=== PATIENT | female | born 1985 ===

== ENCOUNTER → 2020-06-22 10:30 | Outpatient (BNVA) | payer OTHER, SELFPAY | PROVIDERS: PCP Internal Medicine; Referring Provider Internal Medicine; Visit Provider Obstetrics & Gynecology | DX: Z76.89 Persons encountering health services in other specified circumstances (principal) ==

== ENCOUNTER 2021-02-02 17:05 | Emergency (ER) | payer OTHER, SELFPAY ==
[2021-02-02 17:54] VITALS: BP 129/81; PULSE 74; RESP 16; TEMP 36.9; O2SAT 99; BMI 37.5
--- NOTE | 2021-02-02 18:01 | ECG_ITS ---
Test Reason : CHEST PAIN Blood Pressure : / mmHG Vent. Rate : 064 BPM Atrial Rate : 064 BPM P-R Int : 134 ms QRS Dur : 076 ms QT Int : 420 ms P-R-T Axes : 073 015 048 degrees QTc Int : 433 ms Normal sinus rhythm Normal ECG No previous ECGs available Referred By: Generic ED Physician Electronically Signed By:Vitor Hernandez
[2021-02-02 18:27] LABS: MANUAL DIFF FLAG NO
[2021-02-02 18:31] LABS: Basophils Percent Auto 0.6 % (0-2); Eosinophils Absolute Auto 0.1 X10*3/uL (0.0-0.4); Hematocrit 40.5 % (37-47); Imm Gran Abs Auto 0.01 X10*3/uL (0.00-0.03); Imm Gran Pct Auto 0.2 % (0.0-0.4); Lymphocytes Percent Auto 31.9 % (20-40); Mean Corpuscular HGB Conc 32.1 g/dl (31.0-35.0); Mean Corpuscular Hemoglobin 25.9 pg (27.0-33.0); Mean Corpuscular Volume 80.8 fL (80-98); Mean Platelet Volume 9.3 fL (9.4-12.3); Monocytes Absolute Auto 0.3 X10*3/uL (0.1-1.2); Monocytes Percent Auto 5.2 % (2-11); Neutrophils Absolute Auto 3.9 X10*3/uL (2.0-8.3); Neutrophils Percent Auto 61.1 % (45-73); Platelet Count 240 X10*3/uL (160-400); Red Blood Count 5.01 X10*6/uL (4.20-5.50); Red Cell Distribution Width 12.7 % (11.0-16.0); White Blood Count 6.3 X10*3/uL (4.8-10.8)
[2021-02-02 19:00] LABS: Anion Gap 13 (12-20); Blood Urea Nitrogen 14 mg/dL (9-16); Calcium 9.3 mg/dL (8.4-10.2); Carbon Dioxide 27 mmol/L (22-29); Chloride 101 mmol/L (96-108); Estimated Glomerular Filt Rate > 60; Glucose Random 74 mg/dL (60-115); Potassium 4.4 mmol/L (3.3-5.1); Sodium 137 mmol/L (135-145)
[2021-02-02 19:06] LABS: Troponin-I High Sensitivity 4.3 ng/L (<3.5-17.0)
[2021-02-02 19:54] VITALS: BP 145/92; PULSE 70; RESP 15; TEMP 36.7; O2SAT 100
--- NOTE | 2021-02-02 20:08 | ED_ITS ---
HPI - Chest Pain General Chief Complaint: Chest Pain Stated Complaint: chest pain Time Seen by Provider: 02/02/21 20:08 Source: patient Mode of arrival: ambulatory Limitations: no limitations History of Present Illness HPI narrative: Patient with frequent chest pain with anxiety complaining of chest pain started today similar pain in the past happening almost to 3 times a week no shortness of breath no risk factor for coronary artery disease Related Data Home Medications Medication Instructions Recorded Confirmed albuterol sulfate 90 mcg/actuation 2 puff INHALATION Q6H PRN 06/22/20 01/27/21 aerosol inhaler cholecalciferol (vitamin D3) 50 50 mcg PO BEDTIME 06/22/20 01/27/21 mcg (2,000 unit) capsule fluticasone propionate 44 2 puff INHALATION BID 06/22/20 01/27/21 mcg/actuation HFA aerosol inhaler loratadine 10 mg capsule 10 mg PO DAILY 06/22/20 01/27/21 omeprazole 20 mg capsule,delayed 20 mg PO DAILY 06/22/20 01/27/21 release ondansetron HCl 4 mg tablet 4 mg PO Q8H 06/22/20 01/27/21 Previous Rx's Medication Instructions Recorded norgestimate 0.18 mg/0.215 mg/0.25 1 tab PO DAILY 84 Days #84 tab 08/12/20 mg-ethinyl estradiol 25 mcg tablet hydroxyzine HCl 25 mg tablet 25 mg PO Q6H PRN #30 tab 01/27/21 sertraline 25 mg tablet 25 mg PO DAILY #30 tab 01/27/21 Allergies Allergy/AdvReac Type Severity Reaction Status Date / Time No Known Allergies Allergy Verified 02/02/21 18:00 [No Known Allergies*] Review of Systems Review of Systems: Constitutional : No Weight loss, No Fever, No Chills ENT/Mouth : No sore throat, No Rhinorrhea Eyes: No Eye Pain, No Swelling Cardiovascular : +Chest Pain, no palpitations Respiratory : No Cough, No Sputum, no shortness of breath Gastrointestinal : no Nausea, No Vomiting, No Diarrhea, No abdominal Pain, no black stools Genitourinary : No Dysuria, No Urinary Frequency Musculoskeletal : No joint pain, No Myalgias, No Joint Swelling Skin : No Skin Lesions, No rash Neuro : No Weakness, No Numbness, No Dizziness, No Headache Psych : No Anxiety/Panic, No Depression Heme/Lymph: No Bruising, No Lymphadenopathy Endocrine : No Polyuria, No Polydipsia All other systems reviewed and are negative [facility] Past Medical History Medical History Anxiety Pre-eclampsia Trichotillomania Family History Family History Father Diabetes Mother HTN (hypertension) High cholesterol Elevated blood ketone body level Depression with anxiety Cervical cancer Diabetes Fibromyalgia CVD (cardiovascular disease) Maternal Grandmother Liver disease HIV (human immunodeficiency virus infection) Maternal Grandfather Murder Social History Social History Alcohol intake: never Patient Tobacco Use Status: Tobacco use Unknown Use of substances other than those prescribed or required for medical reasons: No Advance Directives: No Advance Directives Information Provided: Yes Patient : No Sexual orientation: Straight/Heterosexual Gender identity: female Physical Exam Vital Signs: Vital Signs: Last Vital Signs Temp 98.1 F 02/02/21 19:54 Pulse 70 02/02/21 19:54 Resp 15 02/02/21 19:54 BP 145/92 H 02/02/21 19:54 Pulse Ox 100 02/02/21 19:54 Body Mass Index 37.5 Appearance: Alert. Oriented X3. No acute distress. Eyes: PERRLA, No Nystagmus ENT: Pharynx normal. Oral Mucosa moist Neck: Normal inspection. Neck supple. CVS: Normal heart rate and rhythm. Pulses normal. Respiratory: No respiratory distress. Equal air entry bilateral, no wheezing/rales/rhonchi Abdomen: Soft and nontender. Bowel sounds are present, no mass palpable, no CVA tenderness Skin: Skin warm and dry. Normal skin color. Normal skin turgor. Extremities: No lower extremity edema. No calf tenderness Neuro: Oriented X 3. No motor deficit. No sensory deficit.No cerebellar signs , cranial nerves II-XII intact MDM - Chest Pain Lab Data Attestation: I reviewed the patient's lab results. Result diagrams: 02/02/21 18:17 02/02/21 18:17 Labs: Lab Results 02/02/21 02/02/21 02/02/21 Range/Units 18:17 18:17 18:17 WBC 6.3 (4.8-10.8) X10*3/uL RBC 5.01 (4.20-5.50) X10*6/uL Hgb 13.0 (12.0-16.0) g/dl Hct 40.5 (37-47) % MCV 80.8 (80-98) fL MCH 25.9 L (27.0-33.0) pg MCHC 32.1 (31.0-35.0) g/dl RDW 12.7 (11.0-16.0) % Plt Count 240 (160-400) X10*3/uL MPV 9.3 L (9.4-12.3) fL Immature Gran % (Auto) 0.2 (0.0-0.4) % Neut % (Auto) 61.1 (45-73) % Lymph % (Auto) 31.9 (20-40) % [place] % (Auto) 5.2 (2-11) % Eos % (Auto) 1.0 (0-4) % Baso % (Auto) 0.6 (0-2) % Lymph # (Auto) 2.0 (1.2-4.9) X10*3/uL [place] # (Auto) 0.3 (0.1-1.2) X10*3/uL Eos # (Auto) 0.1 (0.0-0.4) X10*3/uL Baso # (Auto) 0.0 (0.0-0.2) X10*3/uL Abs Immat Gran (auto) 0.01 (0.00-0.03) X10*3/uL Absolute Neuts (auto) 3.9 (2.0-8.3) X10*3/uL Absolute Nucleated RBC 0.000 (0.0-0.012) X10*3/uL Nucleated RBC % (auto) 0.0 (0.0-0.2) /100WBC Sodium 137 (135-145) mmol/L Potassium 4.4 (3.3-5.1) mmol/L Chloride 101 (96-108) mmol/L Carbon Dioxide 27 (22-29) mmol/L Anion Gap 13 (12-20) BUN 14 (9-16) mg/dL Creatinine 0.89 (0.5-1.4) mg/dL Estim Creat Clear Calc 111.0 Estimated GFR > 60 Random Glucose 74 (60-115) mg/dL Calcium 9.3 (8.4-10.2) mg/dL Troponin I High Sens 4.3 (<3.5-17.0) ng/L Urine Test (NEGATIVE) 02/02/21 Range/Units 20:03 WBC (4.8-10.8) X10*3/uL RBC (4.20-5.50) X10*6/uL Hgb (12.0-16.0) g/dl Hct (37-47) % MCV (80-98) fL MCH (27.0-33.0) pg MCHC (31.0-35.0) g/dl RDW (11.0-16.0) % Plt Count (160-400) X10*3/uL MPV (9.4-12.3) fL Immature Gran % (Auto) (0.0-0.4) % Neut % (Auto) (45-73) % Lymph % (Auto) (20-40) % [place] % (Auto) (2-11) % Eos % (Auto) (0-4) % Baso % (Auto) (0-2) % Lymph # (Auto) (1.2-4.9) X10*3/uL [place] # (Auto) (0.1-1.2) X10*3/uL Eos # (Auto) (0.0-0.4) X10*3/uL Baso # (Auto) (0.0-0.2) X10*3/uL Abs Immat Gran (auto) (0.00-0.03) X10*3/uL Absolute Neuts (auto) (2.0-8.3) X10*3/uL Absolute Nucleated RBC (0.0-0.012) X10*3/uL Nucleated RBC % (auto) (0.0-0.2) /100WBC Sodium (135-145) mmol/L Potassium (3.3-5.1) mmol/L Chloride (96-108) mmol/L Carbon Dioxide (22-29) mmol/L Anion Gap (12-20) BUN (9-16) mg/dL Creatinine (0.5-1.4) mg/dL Estim Creat Clear Calc Estimated GFR Random Glucose (60-115) mg/dL Calcium (8.4-10.2) mg/dL Troponin I High Sens (<3.5-17.0) ng/L Urine Test NEGATIVE (NEGATIVE) ECG Data ECG #1: Interpretation: Normal sinus rhythm heart rate 64 beats per minute normal intervals normal axis no acute ST T wave changes impression normal EKG Discharge Plan Discharge Clinical Impression: Atypical chest pain, Anxiety Patient Disposition: Home, Self-Care Instructions: Chest Pain (ED), Anxiety (ED) Additional Instructions: Continue anxiety medication. Follow with PCP Prescriptions: No Action norgestimate-ethinyl estradiol [Yum-Mp-Jmddskse] 0.18/0.215/0.25 mg-25 mcg tablet 1 tab PO DAILY 84 Days Qty: 84 RF: 2 sertraline 25 mg tablet 25 mg PO DAILY Qty: 30 RF: 1 hydroxyzine HCl 25 mg tablet 25 mg PO Q6H PRN (Reason: nausea and vomiting) Qty: 30 RF: 1 cholecalciferol (vitamin D3) 50 mcg (2,000 unit) capsule 50 mcg PO BEDTIME RF: 0 ondansetron HCl 4 mg tablet 4 mg PO Q8H RF: 0 omeprazole 20 mg capsule,delayed release(DR/EC) 20 mg PO DAILY RF: 0 loratadine 10 mg capsule 10 mg PO DAILY RF: 0 Flovent HFA 44 mcg/actuation HFA aerosol inhaler 2 puff inhalation BID RF: 0 albuterol sulfate [ProAir HFA] 90 mcg/actuation HFA aerosol inhaler 2 puff inhalation Q6H PRNRF: 0 Interventions: ED Discharge Assessment Last Done: 02/02/21 20:36 Discharge Date/Time: 02/02/21 20:37
[2021-02-02 20:13] LABS: UPreg QC Valid YES; Urine Pregnancy NEGATIVE (NEGATIVE)
[2021-02-02] MEDS: LORazepam 1 MG TABLET PO (20:26)
[2021-02-02 20:32] VITALS: PULSE 75
== END 2021-02-02 20:37 | disposition home or self-care (01) ==
PROVIDERS: Emergency Provider Internal Medicine; PCP Internal Medicine
DX: R07.89 Other chest pain (principal); F41.9 Anxiety disorder, unspecified
CPT/HCPCS: 36415; 80048; 81025; 84484; 85025; 93005; 99283; 99285

== ENCOUNTER 2021-03-17 17:01 | Emergency (ER) | payer OTHER, SELFPAY ==
[2021-03-17 17:04] VITALS: BP 128/68; PULSE 83; RESP 16; TEMP 36.7; O2SAT 97; BMI 38.8
--- NOTE | 2021-03-17 18:45 | ED.ALLEREA ---
HPI - Allergic Reaction General Chief complaint: Allergic Reaction Stated complaint: Allergic reaction Time Seen by Provider: 03/17/21 18:37 Source: patient Mode of arrival: ambulatory Limitations: no limitations History of Present Illness HPI narrative: 35-year-old female with multiple allergies presenting to the ED with complaints of allergic reaction to possible allergy shots prior to arrival. Patient reports she has a history of multiple allergies and has been receiving allergy IM shots from her [employer] and today she received 3 IM shots and shortly after she developed warmth to her bilateral ears and rash to her lower extremities. She reports she premedicated prior to the IM shots with Claritin. She denies any other symptoms complaints or concerns or exposures at this time MD complaint: allergic reaction and hives Onset (ago): hour(s) (Prior to arrival) Exposure: medication (IM allergy shots at her [employer]) Known history of allergy to: Multiple Symptoms: rash and itching Severity: mild Treatment prior to arrival: none Related Data Home Medications Medication Instructions Recorded Confirmed albuterol sulfate 90 mcg/actuation 2 puff INHALATION Q6H PRN 06/22/20 02/17/21 aerosol inhaler cholecalciferol (vitamin D3) 50 50 mcg PO BEDTIME 06/22/20 02/17/21 mcg (2,000 unit) capsule fluticasone propionate 44 2 puff INHALATION BID 06/22/20 02/17/21 mcg/actuation HFA aerosol inhaler loratadine 10 mg capsule 10 mg PO DAILY 06/22/20 02/17/21 omeprazole 20 mg capsule,delayed 20 mg PO DAILY 06/22/20 02/17/21 release ondansetron HCl 4 mg tablet 4 mg PO Q8H 06/22/20 02/17/21 Previous Rx's Medication Instructions Recorded norgestimate 0.18 mg/0.215 mg/0.25 1 tab PO DAILY 84 Days #84 tab 08/12/20 mg-ethinyl estradiol 25 mcg tablet hydroxyzine HCl 25 mg tablet 25 mg PO Q6H PRN #30 tab 01/27/21 sertraline 25 mg tablet 25 mg PO DAILY #30 tab 01/27/21 hydroxyzine HCl 25 mg tablet 25 mg PO Q8H PRN #30 tab 02/17/21 sertraline 50 mg tablet 50 mg PO DAILY #30 tab 02/17/21 diphenhydramine HCl [Benadryl 50 mg PO TID PRN #20 tab 03/17/21 Allergy] famotidine [Pepcid] 20 mg PO BID #10 tab 03/17/21 prednisone 40 mg PO DAILY 5 Days #10 tab 03/17/21 Allergies Allergy/AdvReac Type Severity Reaction Status Date / Time No Known Allergies Allergy Verified 02/17/21 14:47 [No Known Allergies*] Review of Systems Review of Systems: Constitutional : No Fever, No Chills , no body aches, no recent illness Head/Face: No facial swelling, No facial redness ENT/Mouth : No oral/throat swelling, No Hoarseness, No Swallowing Difficulty Eyes: No Eye Pain, No Swelling, No Redness Cardiovascular : No Chest Pain, No SOB, No palpitations Respiratory : No Cough, No Sputum, No Wheezing, No Smoke Exposure, No Dyspnea Gastrointestinal : No Nausea, No Vomiting, No Diarrhea, No abdominal Pain Genitourinary : No Dysuria, No Urinary Frequency, No Hematuria Musculoskeletal : No joint pain, No Myalgias, No Joint Swelling Skin : No Skin Lesions, positive rash Neuro : No Weakness, No Numbness, No Headache, No dizziness, No tingling Psych : No Anxiety/Panic, No Depression Heme/Lymph: No Bruising, No Lymphadenopathy Endocrine : No Polyuria, No Polydipsia Denies changes in lotions or detergents. Denies new medications or any changes in medications. Denies drainage from rash. Denies any recent sick contacts or recent travel. Yes all other systems are reviewed and are negative PMFSH Past Medical History Attestation statement: The following information was validated with the patient. Medical History Anxiety Pre-eclampsia Trichotillomania Family History Family History Father Diabetes Mother HTN (hypertension) High cholesterol Elevated blood ketone body level Depression with anxiety Cervical cancer Diabetes Fibromyalgia CVD (cardiovascular disease) Maternal Grandmother Liver disease HIV (human immunodeficiency virus infection) Maternal Grandfather Murder Social History Social History Alcohol intake: current Alcohol intake frequency: a few times a month Patient Tobacco Use Status: Never used Tobacco Use of substances other than those prescribed or required for medical reasons: No Advance Directives: No Advance Directives Information Provided: Yes Patient : No Sexual orientation: Straight/Heterosexual Gender identity: female Physical Exam Vital Signs: Vital Signs: Last Vital Signs Temp 98.0 F 03/17/21 17:04 Pulse 83 03/17/21 17:04 Resp 16 03/17/21 17:04 BP 128/68 03/17/21 17:04 Pulse Ox 97 03/17/21 17:04 Body Mass Index 38.8 vital signs have been reviewed as normal and appeared to be correct. Blood pressure normal. Heart rate normal. Respiration rate normal. Temperature normal. Oxygen saturation normal. Appearance: Alert. Oriented X3. No acute distress. Head: Normal external exam. Normocephalic. Eyes: PERRLA. EOMI. Conjunctiva and sclera normal. Eyelids normal. ENT: Pharynx normal. Uvula midline. Moist mucous membranes. No trismus noted. No drooling noted. No muffled voice noted. Neck: Normal inspection. Neck supple. FROM. No adenopathy. No meningeal signs. CVS: Normal heart rate and rhythm. Heart sound normal. No murmurs noted. Pulses normal throughout. Respiratory: No respiratory distress. Painless inspiration. Breath sounds normal. No wheezes/rales/rhonchi noted. Chest nontender. No accessory muscle usage noted or decreased air movement noted. Abdomen: Soft and nontender. Nondistended. No guarding. No rigidity. Bowel sounds normal in all 4 quadrants. No distention noted. No organomegaly noted. No visible injury noted. No rebound tenderness. Negative Rovsing sign. Negative obturator's sign. Negative psoas sign. Negative Lester sign. Back: No CVA tenderness. Full range of motion noted. Skin: Bilateral ears erythematous and hives noted to lower extremities the rest of the Skin is warm and dry. Normal skin color. Normal skin turgor. No lesions/lacerations noted. Extremities: Extremities exhibit normal range of motion. Extremities nontender. Neuro: Oriented X 3. No motor deficit. No sensory deficit. Reflexes normal. Normal steady gait. Course Course Course Narrative: IMP/Plan: Allergic rxn. Not anaphylaxis. Not sepsis/ infectious etiology. Patient well appearing in no acute distress, breathing easily without throat symptoms. Speaking full sentences, and handling secretions without difficulty. There is no obvious threat to airway. Lungs are CTA in all dunn. No signs of angioedema, stridor, airway compromise, anaphylaxis or anaphylactic shock. Not c/w SSSS/ TEN/ Eryth multiforme/ Hall Johnsons. Given HPI and PE - Will watch and observe. If patient continues to be symptom free - will d/c with return precautions. Patient understands and agrees with plan MDM - Allergic Reaction Medical Records Attestation: I reviewed the patient's medical records. Discharge Plan Discharge Clinical Impression: Allergic reaction, Urticaria Patient Disposition: Home, Self-Care Instructions: Allergies (ED) Prescriptions: New famotidine [Pepcid] 20 mg tablet 20 mg PO BID Qty: 10 RF: 0 diphenhydramine HCl [Benadryl Allergy] 25 mg tablet 50 mg PO TID PRN (Reason: allergic reaction) Qty: 20 RF: 0 prednisone 20 mg tablet 40 mg PO DAILY 5 Days Qty: 10 RF: 0 No Action norgestimate-ethinyl estradiol [Peq-Lo-Qcckrqta] 0.18/0.215/0.25 mg-25 mcg tablet 1 tab PO DAILY 84 Days Qty: 84 RF: 2 sertraline 25 mg tablet 25 mg PO DAILY Qty: 30 RF: 1 hydroxyzine HCl 25 mg tablet 25 mg PO Q6H PRN (Reason: nausea and vomiting) Qty: 30 RF: 1 sertraline 50 mg tablet 50 mg PO DAILY Qty: 30 RF: 2 hydroxyzine HCl 25 mg tablet 25 mg PO Q8H PRN (Reason: itching) Qty: 30 RF: 1 cholecalciferol (vitamin D3) 50 mcg (2,000 unit) capsule 50 mcg PO BEDTIME RF: 0 ondansetron HCl 4 mg tablet 4 mg PO Q8H RF: 0 omeprazole 20 mg capsule,delayed release(DR/EC) 20 mg PO DAILY RF: 0 loratadine 10 mg capsule 10 mg PO DAILY RF: 0 Flovent HFA 44 mcg/actuation HFA aerosol inhaler 2 puff inhalation BID RF: 0 albuterol sulfate [ProAir HFA] 90 mcg/actuation HFA aerosol inhaler 2 puff inhalation Q6H PRNRF: 0 Referrals: Helen Cardoza MD [Primary Care Provider] - 2 days Stand Alone Forms: Work/School Release Print Language: Upper Sorbian
[2021-03-17] MEDS: predniSONE 20 MG TABLET 60 MG PO (19:08)
[2021-03-17] MEDS: diphenhydrAMINE HCL 25 MG TABLET 50 MG PO (19:08)
[2021-03-17] MEDS: Famotidine 20 MG TABLET PO (19:08)
== END 2021-03-17 19:13 | disposition home or self-care (01) ==
PROVIDERS: Emergency Provider Internal Medicine; PCP Internal Medicine
DX: L50.0 Allergic urticaria (principal); Z91.09 Other allergy status, other than to drugs and biological substances
CPT/HCPCS: 99283; Q0163

== ENCOUNTER → 2021-06-23 09:57 | Outpatient (BNVA) | payer OTHER, SELFPAY | PROVIDERS: PCP Internal Medicine; Visit Provider Obstetrics & Gynecology ==

== ENCOUNTER 2021-08-24 08:17 | Outpatient (REF) | payer OTHER, SELFPAY ==
[2021-08-24 11:48] LABS: Basophils Percent Auto 0.7 % (0-2); Eosinophils Absolute Auto 0.1 X10*3/uL (0.0-0.4); Eosinophils Percent Auto 1.2 % (0-4); Hematocrit 38.7 % (37.0-47.0); Hemoglobin 12.2 g/dl (12.0-16.0); Imm Gran Abs Auto 0.02 X10*3/uL (0.00-0.03); Imm Gran Pct Auto 0.3 % (0.0-0.4); Lymphocytes Absolute Auto 1.6 X10*3/uL (1.2-4.9); Lymphocytes Percent Auto 27.2 % (20-40); MANUAL DIFF FLAG SCAN; Mean Corpuscular HGB Conc 31.5 g/dl (31.0-35.0); Mean Corpuscular Hemoglobin 24.7 pg (27.0-33.0); Mean Corpuscular Volume 78.5 fL (80.0-98.0); Mean Platelet Volume 10.6 fL (9.4-12.3); Monocytes Absolute Auto 0.4 X10*3/uL (0.1-1.2); Monocytes Percent Auto 6.4 % (2-11); Neutrophils Absolute Auto 3.8 x10*3/uL (2.0-8.3); Neutrophils Percent Auto 64.2 % (45-73); Platelet Count 232 X10*3/uL (160-400); Red Blood Count 4.93 X10*6/uL (4.20-5.50); Red Cell Distribution Width 13.1 % (11.0-16.0); SCAN SMEAR FLAG 1; White Blood Count 5.9 X10*3/uL (4.8-10.8)
[2021-08-24 12:04] LABS: Alanine Aminotransferase 25 U/L (0-31); Anion Gap 11 (12-20); Aspartate Amino Transferase 21 U/L (5-31); Blood Urea Nitrogen 11 mg/dL (9-16); Calcium 8.5 mg/dL (8.4-10.2); Carbon Dioxide 26 mmol/L (22-29); Chloride 104 mmol/L (96-108); Cholesterol 181 mg/dL; Estimated Glomerular Filt Rate > 60; Glucose Fasting 95 mg/dL (60-99); HDL Cholesterol 73 mg/dL; LDL Cholesterol Calculated 82 mg/dl; Potassium 4.3 mmol/L (3.3-5.1); Sodium 137 mmol/L (135-145); Triglycerides 134 mg/dL
[2021-08-24 12:19] LABS: SLIDE REVIEW VERIFIED
[2021-08-24 12:26] LABS: TSH reflex Free T4 1.81 uIU/mL (0.32-4.0); Vitamin D 25-OH Total 24.8 ng/mL (>30)
== END 2021-08-24 08:18 | disposition home or self-care (01) ==
LOC: HO.HMGCLDS 08:17
PROVIDERS: PCP Internal Medicine; Visit Provider Internal Medicine
DX: Z00.01 Encounter for general adult medical examination with abnormal findings (principal); I10 Essential (primary) hypertension; E66.01 Morbid (severe) obesity due to excess calories; J45.20 Mild intermittent asthma, uncomplicated; J30.2 Other seasonal allergic rhinitis; F41.9 Anxiety disorder, unspecified
CPT/HCPCS: 36415; 80048; 80061; 82306; 84443; 84450; 84460; 85025

== ENCOUNTER 2022-05-04 18:43 | Emergency (ER) | payer OTHER, SELFPAY ==
--- NOTE | 2022-05-04 18:46 | ECG_ITS ---
Test Reason : TACHYCARDIA Blood Pressure : / mmHG Vent. Rate : 142 BPM Atrial Rate : 142 BPM P-R Int : 126 ms QRS Dur : 070 ms QT Int : 292 ms P-R-T Axes : 052 -27 044 degrees QTc Int : 449 ms Sinus tachycardia Possible Left atrial enlargement Nonspecific ST abnormality Abnormal ECG When compared with ECG of 02-FEB-2021 18:22, Vent. rate has increased BY [address] now depressed in Lateral leads Referred By: Generic ED Physician Electronically Signed By:MARYANN VILLA
--- NOTE | 2022-05-04 18:49 | ED.CHESTPAIN ---
HPI - Chest Pain General Chief Complaint: General Medical Stated Complaint: chest pressure Time Seen by Provider: 05/04/22 18:49 Source: patient Mode of arrival: ambulatory Limitations: no limitations History of Present Illness HPI narrative: Patient states anxiety 0, obesity diagnosed with COVID about 9 days ago still coughing with mucopurulent phlegm half an hour prior to arrival notice palpitation with heaviness radiating to the left with slight shortness of breath at this time patient's heart rate was 130, at triage was 160s , patient feel comfortable at this time never had similar complaints in the past Related Data Home Medications Medication Instructions Recorded Confirmed albuterol sulfate 90 mcg/actuation 2 puff inhalation Q6H PRN 06/22/20 08/15/21 aerosol inhaler (ProAir HFA) fluticasone propionate 44 2 puff inhalation BID 06/22/20 08/15/21 mcg/actuation HFA aerosol inhaler (Flovent HFA) montelukast 10 mg tablet 0 mg PO 08/15/21 08/15/21 Previous Rx's Medication Instructions Recorded sertraline 25 mg tablet 25 mg PO DAILY #30 tabs 01/27/21 hydroxyzine HCl 25 mg tablet 25 mg PO Q8H PRN itching #30 tabs 02/17/21 sertraline 50 mg tablet 50 mg PO DAILY #30 tabs 02/17/21 diphenhydramine HCl 25 mg tablet 50 mg PO TID PRN allergic reaction 03/17/21 (Benadryl Allergy) #20 tabs norgestimate 0.18 mg/0.215 mg/0.25 1 tab PO DAILY 84 days #84 tabs 08/10/21 mg-ethinyl estradiol 25 mcg tablet (Axc-Gf-Plifzqle) Allergies Allergy/AdvReac Type Severity Reaction Status Date / Time No Known Allergies Allergy Verified 08/15/21 12:43 [No Known Allergies*] Review of Systems Review of Systems: Yes all other systems are reviewed and are negative PMFSH Past Medical History Medical History Anxiety Mild intermittent asthma Morbid obesity Pre-eclampsia Seasonal allergies Trichotillomania Surgical History No pertinent past surgical history Family History Family History Father Diabetes Substance use disorder Mental health disorder Mother HTN (hypertension) High cholesterol Elevated blood ketone body level Depression with anxiety Cervical cancer Diabetes Fibromyalgia CVD (cardiovascular disease) Substance use disorder Mental health disorder Maternal Grandmother Liver disease HIV (human immunodeficiency virus infection) Substance use disorder Mental health disorder Maternal Grandfather Murder Maternal Aunt Substance use disorder Mental health disorder Paternal Aunt Substance use disorder Mental health disorder Maternal Grandfather Substance use disorder Mental health disorder Brother Mental health disorder Brother Mental health disorder Brother Mental health disorder Social History Social History Housing: House Alcohol intake: current Alcohol intake frequency: holidays/special occasions only Alcohol type: wine Patient Tobacco Use Status: Never used Tobacco e-Cigarette/Vaping Use: Never Used Advance Directives: No Advance Directives Information Provided: Yes service: No Current occupational status: employed Sexual orientation: Straight/Heterosexual Gender identity: Female Physical Exam Vital Signs: Vital Signs: Last Vital Signs Temp 98 F 05/04/22 18:56 Pulse 138 H 05/04/22 18:56 Resp 22 H 05/04/22 18:56 BP 145/71 H 05/04/22 18:56 Pulse Ox 99 05/04/22 18:56 O2 Del Method 05/04/22 18:56 BMI result Body Mass Index 47.0 Appearance: Alert. Oriented X3. No acute distress. Eyes: No pallor or icterus ENT: Pharynx normal. Oral Mucosa moist Neck: Normal inspection. Neck supple. CVS: Sinus tachycardia no murmur or gallop Pulses normal. Respiratory: No respiratory distress. Equal air entry bilateral, no wheezing/rales/rhonchi Abdomen: Soft and nontender. Bowel sounds are present, no mass palpable, no CVA tenderness Skin: Skin warm and dry. Normal skin color. Normal skin turgor. Extremities: No lower extremity edema. No calf tenderness Neuro: Oriented X 3. No motor deficit. No sensory deficit. MDM - Chest Pain Lab Data Result diagrams: 05/04/22 19:06 05/04/22 19:06 Labs: Lab Results 05/04/22 05/04/22 05/04/22 Range/Units 19:06 19:06 19:06 WBC 6.8 (4.8-10.8) X10*3/uL RBC 5.12 (4.20-5.50) X10*6/uL Hgb 12.7 (12.0-16.0) g/dl Hct 39.2 (37.0-47.0) % MCV 76.6 L (80.0-98.0) fL MCH 24.8 L (27.0-33.0) pg MCHC 32.4 (31.0-35.0) g/dl RDW 12.8 (11.0-16.0) % Plt Count 297 D (160-400) X10*3/uL MPV 10.0 (9.4-12.3) fL Immature Gran % (Auto) 0.4 (0.0-0.4) % Neut % (Auto) 58.1 (45-73) % Lymph % (Auto) 32.9 (20-40) % [place] % (Auto) 6.2 (2-11) % Eos % (Auto) 1.8 (0-4) % Baso % (Auto) 0.6 (0-2) % Lymph # (Auto) 2.2 (1.2-4.9) X10*3/uL [place] # (Auto) 0.4 (0.1-1.2) X10*3/uL Eos # (Auto) 0.1 (0.0-0.4) X10*3/uL Baso # (Auto) 0.0 (0.0-0.2) X10*3/uL Abs Immat Gran (auto) 0.03 (0.00-0.03) X10*3/uL Absolute Neuts (auto) 3.9 (2.0-8.3) x10*3/uL Absolute Nucleated RBC 0.000 (0.0-0.012) X10*3/uL Nucleated RBC % (auto) 0.0 (0.0-0.2) /100WBC D-Dimer High Sensitivty 170 NG/ML Sodium 141 (135-145) mmol/L Potassium 4.1 (3.3-5.1) mmol/L Chloride 104 (96-108) mmol/L Carbon Dioxide 24 (22-29) mmol/L Anion Gap 17 (12-20) BUN 11 (9-16) mg/dL Creatinine 0.91 (0.5-1.4) mg/dL Estim Creat Clear Calc 122.1 Estimated GFR > 60 Random Glucose 133 H (60-115) mg/dL Calcium 8.5 (8.4-10.2) mg/dL Troponin I High Sens (<3.5-17.0) ng/L TSH 0.61 (0.32-4.0) uIU/mL 05/04/22 Range/Units 19:06 WBC (4.8-10.8) X10*3/uL RBC (4.20-5.50) X10*6/uL Hgb (12.0-16.0) g/dl Hct (37.0-47.0) % MCV (80.0-98.0) fL MCH (27.0-33.0) pg MCHC (31.0-35.0) g/dl RDW (11.0-16.0) % Plt Count (160-400) X10*3/uL MPV (9.4-12.3) fL Immature Gran % (Auto) (0.0-0.4) % Neut % (Auto) (45-73) % Lymph % (Auto) (20-40) % [place] % (Auto) (2-11) % Eos % (Auto) (0-4) % Baso % (Auto) (0-2) % Lymph # (Auto) (1.2-4.9) X10*3/uL [place] # (Auto) (0.1-1.2) X10*3/uL Eos # (Auto) (0.0-0.4) X10*3/uL Baso # (Auto) (0.0-0.2) X10*3/uL Abs Immat Gran (auto) (0.00-0.03) X10*3/uL Absolute Neuts (auto) (2.0-8.3) x10*3/uL Absolute Nucleated RBC (0.0-0.012) X10*3/uL Nucleated RBC % (auto) (0.0-0.2) /100WBC D-Dimer High Sensitivty NG/ML Sodium (135-145) mmol/L Potassium (3.3-5.1) mmol/L Chloride (96-108) mmol/L Carbon Dioxide (22-29) mmol/L Anion Gap (12-20) BUN (9-16) mg/dL Creatinine (0.5-1.4) mg/dL Estim Creat Clear Calc Estimated GFR Random Glucose (60-115) mg/dL Calcium (8.4-10.2) mg/dL Troponin I High Sens < 3.5 (<3.5-17.0) ng/L TSH (0.32-4.0) uIU/mL ECG Data ECG #1: Attestation: I personally reviewed and interpreted this ECG as follows: Interpretation: Sinus tachycardia with rate 142 beats per minute number interval normal axis no ST-T changes no acute ischemia Discharge Plan Discharge Clinical Impression: Paroxysmal supraventricular tachycardia, Anxiety Patient Disposition: Home, Self-Care Instructions: Supraventricular Tachycardia (ED), Anxiety (ED) Additional Instructions: Possibly had SVT with anxiety Use breath holding maneuver as advised Report to the ER if palpitations persist Follow with PCP Prescriptions: No Action norgestimate-ethinyl estradiol [Poq-Jj-Yohtpkvf] 0.18/0.215/0.25 mg-25 mcg tablet 1 tab PO DAILY 84 Days Qty: 84 3RF diphenhydramine HCl [Benadryl Allergy] 25 mg tablet 50 mg PO TID PRN (Reason: allergic reaction) Qty: 20 0RF sertraline 25 mg tablet 25 mg PO DAILY Qty: 30 1RF sertraline 50 mg tablet 50 mg PO DAILY Qty: 30 2RF hydroxyzine HCl 25 mg tablet 25 mg PO Q8H PRN (Reason: itching) Qty: 30 1RF montelukast 10 mg tablet 0 mg PO Flovent HFA 44 mcg/actuation HFA aerosol inhaler 2 puff inhalation BID Rx Instructions: administer with spacer albuterol sulfate [ProAir HFA] 90 mcg/actuation HFA aerosol inhaler 2 puff inhalation Q6H PRN Interventions: ED Discharge Assessment Last Done: 05/04/22 21:44 Discharge Date/Time: 05/04/22 21:44
[2022-05-04 18:56] VITALS: BP 145/71; PULSE 138; RESP 22; TEMP 36.6; O2SAT 99; BMI 47.0
[2022-05-04 19:13] LABS: MANUAL DIFF FLAG NO
[2022-05-04 19:15] LABS: Basophils Percent Auto 0.6 % (0-2); Eosinophils Absolute Auto 0.1 X10*3/uL (0.0-0.4); Eosinophils Percent Auto 1.8 % (0-4); Hematocrit 39.2 % (37.0-47.0); Hemoglobin 12.7 g/dl (12.0-16.0); Imm Gran Abs Auto 0.03 X10*3/uL (0.00-0.03); Imm Gran Pct Auto 0.4 % (0.0-0.4); Lymphocytes Absolute Auto 2.2 X10*3/uL (1.2-4.9); Lymphocytes Percent Auto 32.9 % (20-40); Mean Corpuscular HGB Conc 32.4 g/dl (31.0-35.0); Mean Corpuscular Hemoglobin 24.8 pg (27.0-33.0); Mean Corpuscular Volume 76.6 fL (80.0-98.0); Monocytes Absolute Auto 0.4 X10*3/uL (0.1-1.2); Monocytes Percent Auto 6.2 % (2-11); Neutrophils Absolute Auto 3.9 x10*3/uL (2.0-8.3); Neutrophils Percent Auto 58.1 % (45-73); Platelet Count 297 X10*3/uL (160-400); Red Blood Count 5.12 X10*6/uL (4.20-5.50); Red Cell Distribution Width 12.8 % (11.0-16.0); White Blood Count 6.8 X10*3/uL (4.8-10.8)
[2022-05-04] MEDS: 0.9 % Sodium Chloride 1,000 ML 999 ML IV (19:20)
[2022-05-04 19:26] LABS: D Dimer High Sensitivity 170 NG/ML
[2022-05-04 19:33] LABS: Anion Gap 17 (12-20); Blood Urea Nitrogen 11 mg/dL (9-16); Calcium 8.5 mg/dL (8.4-10.2); Carbon Dioxide 24 mmol/L (22-29); Chloride 104 mmol/L (96-108); Creatinine Clr Calc Pharmacy 122.1; Estimated Glomerular Filt Rate > 60; Glucose Random 133 mg/dL (60-115); Potassium 4.1 mmol/L (3.3-5.1); Sodium 141 mmol/L (135-145)
[2022-05-04 19:38] LABS: Troponin-I High Sensitivity < 3.5 ng/L (<3.5-17.0)
[2022-05-04 19:54] LABS: Thyroid Stimulating Hormone 0.61 uIU/mL (0.32-4.0)
== END 2022-05-04 21:44 | disposition home or self-care (01) ==
PROVIDERS: Emergency Provider Internal Medicine; PCP Internal Medicine
DX: I47.1 Supraventricular tachycardia (principal); F41.9 Anxiety disorder, unspecified; E66.01 Morbid (severe) obesity due to excess calories; Z68.42 Body mass index [BMI] 45.0-49.9, adult
CPT/HCPCS: 36415; 80048; 84443; 84484; 85025; 85379; 93005; 99283

== ENCOUNTER 2022-11-09 09:21 | Outpatient (REF) | payer OTHER, SELFPAY ==
[2022-11-09 16:36] LABS: Alanine Aminotransferase 89 U/L (0-31); Anion Gap 14 (12-20); Aspartate Amino Transferase 74 U/L (5-31); Blood Urea Nitrogen 9 mg/dL (9-16); Calcium 8.9 mg/dL (8.4-10.2); Carbon Dioxide 27 mmol/L (22-29); Chloride 103 mmol/L (96-108); Cholesterol 195 mg/dL; Estimated Glomerular Filt Rate > 60; Glucose Fasting 98 mg/dL (60-99); HDL Cholesterol 48 mg/dL; LDL Cholesterol Calculated 122 mg/dl; Potassium 4.7 mmol/L (3.3-5.1); Sodium 139 mmol/L (135-145); Triglycerides 129 mg/dL; Vitamin D 25-OH Total 28.8 ng/mL (>30)
== END 2022-11-09 09:22 | disposition home or self-care (01) ==
LOC: HO.HMGCLDS 09:21
PROVIDERS: PCP Internal Medicine; Visit Provider Internal Medicine
DX: Z00.01 Encounter for general adult medical examination with abnormal findings (principal); J30.2 Other seasonal allergic rhinitis; F41.9 Anxiety disorder, unspecified; E66.01 Morbid (severe) obesity due to excess calories; J45.20 Mild intermittent asthma, uncomplicated
CPT/HCPCS: 36415; 80048; 80061; 82306; 84450; 84460

== ENCOUNTER 2023-07-02 09:12 | Outpatient (AMB) | payer OTHER, SELFPAY ==
[2023-07-02 11:21] VITALS: BP 130/84; PULSE 75; TEMP 36.7; O2SAT 96; BMI 46.1
--- NOTE | 2023-07-02 11:21 | AM.OFFWIN_ITS ---
Intake Vital Signs 07/02/23 11:21 Height 5 ft 7 in Weight 294 lb 2 oz BMI 46.1 BP 130/84 Blood Pressure Location Lt brachial Position Sitting Pulse 75 Pulse Source Pulse Oximeter Temp 98.1 F Temp Source Oral Pulse Oximetry (%) 96 Oxygen Delivery Method Room Air Intake Visit Reasons: Bi ear pain Intake Note: Pt presents to the office today for c/o bilateral ear pain. Pt states her right ear is bothering her more. Pt states she really started having issues with her ears on 06/29/23 Patient Tobacco Use Status: Never used Tobacco Allergies No Known Allergies [No Known Allergies*] Allergy (Verified 07/02/23 11:50) Medication List - Last Reconciled 07/02/23 by Catalino Hager MD albuterol sulfate 90 mcg/actuation (ProAir HFA) 2 puffs inhalation Q6H PRN cholecalciferol (vitamin D3) 50 mcg PO DAILY fluticasone propionate 44 mcg/actuation (Flovent HFA) 2 puffs inhalation BID hydroxyzine HCl 25 mg PO Q8H PRN montelukast 0 mg PO sertraline 100 mg PO DAILY HPI Bi ear pain HPI Details Patient presents for a sick visit. Reporting symptoms of sinus congestion, sore throat and difficulty swallowing. Low-grade fever. No family member is sick. No recent travel. Patient reports symptoms of malaise and fatigue. [facility] Medical History Morbid obesity Mild intermittent asthma Seasonal allergies Pre-eclampsia Trichotillomania Anxiety Surgical History No pertinent past surgical history Family History Father Diabetes Substance use disorder Mental health disorder Mother HTN (hypertension) High cholesterol Elevated blood ketone body level Depression with anxiety Cervical cancer Diabetes Fibromyalgia CVD (cardiovascular disease) Substance use disorder Mental health disorder Maternal Grandmother Liver disease HIV (human immunodeficiency virus infection) Substance use disorder Mental health disorder Maternal Grandfather Murder Maternal Aunt Substance use disorder Mental health disorder Paternal Aunt Substance use disorder Mental health disorder Maternal Grandfather Substance use disorder Mental health disorder Brother Mental health disorder Brother Mental health disorder Brother Mental health disorder Social History Household Members: Spouse Household Members Other:: son Housing: House Alcohol intake: current Alcohol intake frequency: holidays/special occasions only Alcohol type: wine Patient Tobacco Use Status: Never used Tobacco e-Cigarette/Vaping Use: Never Used service: No Current occupational status: employed 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 Sexual orientation: Straight/Heterosexual Gender identity: Female Cognitive needs: No Hearing needs: No Vision needs: No Female Reproductive History Menstrual Age of Menarche: 8 Physical Exam Vital Signs: Last Vital Signs Temp 98.1 F 07/02/23 11:21 Pulse 75 07/02/23 11:21 BP 130/84 07/02/23 11:21 Pulse Ox 96 07/02/23 11:21 Oxygen Delivery Method Room Air 07/02/23 11:21 BMI result Body Mass Index 46.1 Const General: cooperative and healthy appearing Nutritional Appearance: well nourished Orientation/consciousness: patient oriented x3 Limitations: no limitations HEENT Head: Yes normal to inspection Eyes General: appearance normal, both eyes and all related structures Neck Neck: Yes normal visual inspection Chest Chest palpation & inspection: normal palpation of entire chest wall Resp Effort & Inspection: normal respiratory effort Neuro General: patient oriented x3 Assessment & Plan Assessment & Plan (1) Upper respiratory tract infection: Code(s): J06.9 - Acute upper respiratory infection, unspecified Plan Antibiotics ordered. Increase fluid intake. Tylenol for aches and pains. If symptoms worsen, follow-up here for a recheck. Coding Level of Care Code Est Pt Level 3 (04575) Diagnoses Upper respiratory tract infection J06.9
== END 2023-07-02 11:53 | disposition home or self-care (01) ==
PROVIDERS: PCP Internal Medicine; Visit Provider Internal Medicine
DX: J06.9 Acute upper respiratory infection, unspecified (principal)
CPT/HCPCS: 99213

== ENCOUNTER 2023-08-06 13:40 | Outpatient (AMB) | payer OTHER, SELFPAY ==
--- NOTE | 2023-08-06 13:43 | A.OFFVIS_ITS ---
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 No complaints. Last Pap/HPV was negative in 05/22. [facility] Medical History (Updated 08/06/23 @ 13:56 by Max Gill MD) Well woman exam Morbid obesity Mild intermittent asthma Seasonal allergies Pre-eclampsia Trichotillomania Anxiety Surgical History No pertinent past surgical history Family History Father Diabetes Substance use disorder Mental health disorder Mother HTN (hypertension) High cholesterol Elevated blood ketone body level Depression with anxiety Cervical cancer Diabetes Fibromyalgia CVD (cardiovascular disease) Substance use disorder Mental health disorder Maternal Grandmother Liver disease HIV (human immunodeficiency virus infection) Substance use disorder Mental health disorder Maternal Grandfather Murder Maternal Aunt Substance use disorder Mental health disorder Paternal Aunt Substance use disorder Mental health disorder Maternal Grandfather Substance use disorder Mental health disorder Brother Mental health disorder Brother Mental health disorder Brother Mental health disorder Social History Household Members: Spouse Household Members Other:: son Housing: House Alcohol intake: current Alcohol intake frequency: holidays/special occasions only Alcohol type: wine Patient Tobacco Use Status: Never used Tobacco e-Cigarette/Vaping Use: Never Used service: No Current occupational status: employed 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 Sexual orientation: Straight/Heterosexual Gender identity: Female Cognitive needs: No Hearing needs: No Vision needs: No Female Reproductive History Menstrual Age of Menarche: 8 Total pregnancies: 1 Full term: 1 Number of Living Children: 1 Date of last pap smear: 05/06/19 Review of Systems Const All systems reviewed & are unremarkable except as noted in HPI and below Card Reports as per HPI Resp Reports as per HPI GI Reports as per HPI and Reports no additional complaints Reports as per HPI Physical Exam Vital Signs: BMI result Body Mass Index 55.5 Const General: cooperative, healthy appearing and comfortable Chest Chest palpation & inspection: normal inspection of the chest and normal palpation of entire chest wall Breast/axilla inspection: normal inspection of the breasts and normal inspection of the axillae Breast/axilla palpation: normal palpation of the breasts, normal palpation of the axillae and no axillary lymphadenopathy Resp Effort & Inspection: normal respiratory effort Auscultation: clear to auscultation bilaterally Percussion: percussion normal Cardio Palpation: normal PMI Rate: regular rate Rhythm: regular rhythm Heart sounds: no murmurs and no rubs Peripheral pulses: Peripheral pulses 2+ throughout GI Inspection: Yes normal to inspection Palpation (GI): Soft to palpation, nontender, no guarding, not rigid and No hepatosplenomegaly present Percussion: Yes normal to percussion Auscultation: normal bowel sounds Rectal Exam - Female: deferred General: Yes bladder normal to palpation External Female Exam: No lesion Speculum Exam - Vagina: normal appearance of the vagina, normal palpation, normal vaginal discharge and not erythematous Speculum Exam - Cervix: normal appearance of the cervix and normal palpation Bimanual exam- vagina & uterus: normal bimanual exam, normal palpation, uterine size normal, bladder normal to palpation, consistency normal and normal palpation Bimanual Exam- Adnexa, other: normal adnexae, no masses and no tenderness Assessment & Plan Assessment & Plan (1) Well woman exam: Code(s): Z01.419 - Encounter for gynecological examination (general) (routine) without abnormal findings Plan: Cotesting not indicated this. Counseled the patient about the recommended dietary allowance of 1000 mg of Calcium & 600 IU of vitamin D. The patient was instructed to perform monthly self-breast exams and to schedule an annual exam in a year; All questions answered and the patient verbalized understanding. Instructed the patient to schedule annual exam in a year Coding Level of Care Code Est Pt Prev Care 18-39y(86751) Diagnoses Well woman exam Z01.419
[2023-08-06 13:45] VITALS: BP 126/88; BMI 55.5
== END 2023-08-06 14:55 | disposition home or self-care (01) ==
LOC: HO.HWS 13:40
PROVIDERS: PCP Internal Medicine; Visit Provider Obstetrics & Gynecology
DX: Z01.419 Encounter for gynecological examination (general) (routine) without abnormal findings (principal)
CPT/HCPCS: 99395

== ENCOUNTER → 2023-08-06 13:40 | Outpatient (BNVA) | payer OTHER, SELFPAY | PROVIDERS: PCP Internal Medicine; Visit Provider Obstetrics & Gynecology ==

== ENCOUNTER 2023-11-19 10:56 | Outpatient (AMB) | payer OTHER, SELFPAY ==
--- NOTE | 2023-11-19 11:04 | MHC.PC.OV ---
Vital Signs 11/19/23 11:05 Height 5 ft 1 in Weight 299 lb BMI 56.5 BP 100/78 Blood Pressure Location Rt brachial Position Sitting Pulse 74 Pulse Source Pulse Oximeter Pulse Oximetry (%) 97 Oxygen Delivery Method Room Air Intake Visit Reasons: Physical exam Intake Note: Pt is here today for her PE: last papsmear 08/06/23 Is last menstrual period known: Yes Last menstrual period: 10/24/23 Allergies No Known Allergies [No Known Allergies*] Allergy (Verified 11/19/23 11:22) Medication List - Last Reconciled 11/20/23 by Helen Cardoza MD albuterol sulfate 90 mcg/actuation (ProAir HFA) 2 puffs inhalation Q6H PRN cholecalciferol (vitamin D3) 50 mcg PO DAILY fluticasone propionate 44 mcg/actuation (Flovent HFA) 2 puffs inhalation BID hydroxyzine HCl 25 mg PO Q8H PRN loratadine (Claritin) 10 mg PO DAILY montelukast 0 mg PO sertraline 200 mg PO DAILY Tobacco use date assessed: 11/19/23 Dental Screening Dental Screen Date: 11/19/23 Did you have a dental visit in the last 12 months?: Yes Did you have a dental problem in the last 6 months where you did not have access to dental care?: Yes Was dental information given to patient?: Patient has dentist HPI Physical exam HPI Details 38-year-old lady with morbid obesity, here today for physical exam she has mild intermittent asthma, and seasonal allergies, stable controlled on present treatment. [facility], sees Dr. Jackson, who has been giving her her allergy shots. She has generalized anxiety disorder, and Trichotillomania, stable and controlled on sertraline 100 mg taken once a day and takes hydroxyzine as needed for acute anxiety attacks. Currently followed by Fabián Maciel at [facility]. She is up-to-date with her cervical cancer screening, last done 2019 with benign finding, goes to [facility]. [facility] Medical History (Updated 11/19/23 @ 11:47 by Helen Cardoza MD) Well woman exam Morbid obesity Mild intermittent asthma Seasonal allergies Pre-eclampsia Trichotillomania Anxiety Surgical History No pertinent past surgical history Family History Father Diabetes Substance use disorder Mental health disorder Mother HTN (hypertension) High cholesterol Elevated blood ketone body level Depression with anxiety Cervical cancer Diabetes Fibromyalgia CVD (cardiovascular disease) Substance use disorder Mental health disorder Maternal Grandmother Liver disease HIV (human immunodeficiency virus infection) Substance use disorder Mental health disorder Maternal Grandfather Murder Maternal Aunt Substance use disorder Mental health disorder Paternal Aunt Substance use disorder Mental health disorder Maternal Grandfather Substance use disorder Mental health disorder Brother Mental health disorder Brother Mental health disorder Brother Mental health disorder Social History Household Members: Spouse Household Members Other:: son Housing: House Alcohol intake: current Alcohol intake frequency: holidays/special occasions only Alcohol type: wine Patient Tobacco Use Status: Never used Tobacco e-Cigarette/Vaping Use: Never Used service: No Current occupational status: employed 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 1. Little interest or pleasure in doing things: not at all 2. Feeling down, depressed, or hopeless: not at all 3. Trouble falling or staying asleep, or sleeping too much: not at all 4. Feeling tired or having little energy: not at all 5. Poor appetite or overeating: not at all 6. Feeling bad about yourself - or that you are a failure or have let yourself or your family down: not at all 7. Trouble concentrating on things, such as reading the newspaper or watching television: not at all 8. Moving or speaking so slowly that other people could have noticed. Or the opposite - being so fidgety or restless that you have been moving around a lot more than usual: not at all 9. Thoughts that you would be better off or of hurting yourself in some way: not at all Total score: 0 Depression Screening Interpretation: Negative Depression Screening Done: Yes 81265 - PHQ-9 Billing: Yes Source: Developed by Drs. Richardson Boone, Pablo Burnett and colleagues, with an educational navneet from [employer]. Thrive Questionnaire Date Thrive assessed: 11/19/23 I am a: Patient What is your living situation today?: I have a steady place to live Within the past 12 months, did the food you bought not last and you didn't have the money to get more?: Never true Within the past 12 months, did you worry whether your food would run out before you got money to buy more?: Never true Do you have trouble paying for medicines?: No Do you have trouble getting transportation to medical appointments?: No Do you have trouble paying your heating and electricity bill?: No Do you have trouble taking care of your child, family member or friend?: No Do you have trouble with day-to-day activities such as bathing, preparing meals, shopping, managing finances, etc.?: No Are you currently unemployed and looking for a job?: No Are you interested in more education?: No THRIVE Score: 0 AUDIT C Alcohol Use Questionnaire (AUDIT-C) 1. How often do you have a drink containing alcohol?: Monthly or less 2. How many drinks containing alcohol do you have on a typical day when you are drinking?: 1 or 2 3. How often do you have six or more drinks on one occasion?: Less than monthly Total Score: 2 MILTON-7 AMB Questionnaire MILTON-7 Date MILTON - 7 assessed: 11/19/23 Feeling nervous, anxious, or on edge: 0 = Not at all Not being able to stop or control worryin = Not at all Worrying too much about different things: 0 = Not at all Trouble relaxin = Not at all Being so restless that it is hard to sit still: 0 = Not at all Becoming easily annoyed or irritable: 0 = Not at all Feeling afraid as if something awful might happen: 0 = Not at all Total MILTON-7 score (0-4 normal; 5-9 mild; 10-14 moderate; 15-21 severe): 0 Source: Developed by Radha Santamaria Kurt Kroenke and colleagues, with an educational navneet from [employer]. MILTON-7 Assessment Billing MILTON-7 Assessment Tool: MILTON-7 Assessment 00241 ([facility] by [facility]) ACT Questionnaire In the past 4 weeks, how much of the time did your asthma keep you from getting as much done at work, school or at home?: None of the time During the past 4 weeks, how often have you had shortness of breath?: 1-2 times a week During the past 4 weeks, how often did your asthma symptoms wake you up at night or earlier than usual in the morning?: Not at all During the past 4 weeks, how often have you had to use your rescue inhaler or nebulizer medication?: Not at all How would you rate your asthma control during the past 4 weeks?: Completely controlled Score: 24 Review of Systems Const Denies body aches, Denies daytime sleepiness, Denies difficulty sleeping, Denies fatigue, Denies fever(s), Denies stops breathing during sleep and Denies weakness Eyes Reports no additional complaints ENT Reports no additional complaints Card Denies chest pain, Denies rapid heart rate, Denies pedal edema, Denies irregular heart rhythm and Denies dyspnea Resp Denies cough, Denies pain on inspiration and Denies dyspnea GI Denies dyspepsia, Denies heartburn and Denies nausea Denies hematuria, Denies nipple discharge, Denies dysuria, Denies urinary incontinence and Denies vaginal discharge Musc Reports no additional complaints Skin/Breast Denies breast swelling, Denies breast skin changes, Denies breast pain, Denies breast mass, Denies lesions, Denies nipple discharge and Denies rash Neuro Reports no additional complaints and Denies weakness Psych Reports no additional complaints Endo Denies fatigue Naif/Lymph Reports no additional complaints Aller/Immun Reports no additional complaints Physical exam (Primary Care) Vital Signs: Last Vital Signs Pulse 74 11/19/23 11:05 BP 100/78 11/19/23 11:05 Pulse Ox 97 11/19/23 11:05 Oxygen Delivery Method Room Air 11/19/23 11:05 BMI result Body Mass Index 56.5 BMI Assessment/Plan discussion: High BMI High, discussed plan: lifestyle, weight reduction, dietary and physical activity Tobacco/Smoking Status: Tobacco use Status Tobacco use date assessed 11/19/23 11/19/23 11:07 Patient Tobacco Use Status Never used Tobacco 11/19/23 11:07 e-Cigarette/Vaping Use Never Used 11/19/23 11:07 PHQ-9: PHQ-9 Score PHQ-9: Total score 0 11/19/23 11:53 Depression Screening Interpretation: Negative Thrive Assessment: Date of Thrive Assessment Date Thrive assessed 11/19/23 11/19/23 11:50 Const Other: Alert oriented x3, morbidly obese, no acute cardiorespiratory distress noted, ambulatory with normal gait [facility] General nose exam: Normal external nose present and No nasal discharge present Mouth: Normal oral and palatal mucosa present and moist mucous membranes Eyes General: appearance normal, both eyes and all related structures Conjunctivae: conjunctivae normal Pupils: Equal, round and reactive pupils present EOM: EOMs intact bilaterally Neck Neck: Yes full ROM, Yes no lymphadenopathy and Yes supple Thyroid: Thyroid normal Chest Chest palpation & inspection: normal inspection of the chest Breast/axilla inspection: normal inspection of the breasts Breast/axilla palpation: normal palpation of the breasts Resp Auscultation: clear to auscultation bilaterally Cardio Rate: regular rate Rhythm: regular rhythm Heart sounds: S1 normal heart sound present and S2 normal heart sound present GI Other: Normal bowel sounds, soft , no tenderness on palpation on all quadrants of abdomen no mass palpated Inspection: Yes obesity Other: sees Dr Gill General: Yes no CVA tenderness Back/Spine/Pelvis Back: no CVA tenderness and No back tenderness Skin General skin exam: no rashes or lesions noted Neuro Cranial nerves: Yes Equal, round and reactive pupils present Extrem General: Yes full ROM, Yes no joint enlargement, Yes no pedal edema, Yes no calf tenderness and Yes normal gait Psych Appearance: grossly normal and well kempt Mental Status: mental status grossly normal Speech and movement: Normal speech and movement present Affect: normal affect Attitude: cooperative Thought process: Normal thought process present Thought content: Normal thought content present Assessment and Plan Assessment & Plan (1) Annual visit for general adult medical examination with abnormal findings: Code(s): Z00.01 - Encounter for general adult medical examination with abnormal findings Plan: Will check appropriate labs. Continue regular dental visit every 6 months and regular eye exams, at least every 2 years. Take adequate calcium in diet and vitamin-D 3 at 2000 IU per cap once a day, in addition to weight-bearing exercises to help maintain good muscle tone and weight control. Instructed to do self-breast exam, and recommended to get yearly mammogram, starting at age 40. Up-to-date with her cervical cancer screening done in 2019, has another appointment with Dr. Gill in August 2024 for her routine Pap and pelvic exam. Up-to-date with her flu shot, reminded to get her COVID booster, up-to-date with her Tdap and pneumococcal vaccination (2) Mild intermittent asthma: Comment: ff's at [facility] Code(s): J45.20 - Mild intermittent asthma, uncomplicated Qualifiers: Asthma complication type: uncomplicated Qualified Code(s): J45.20 - Mild intermittent asthma, uncomplicated Plan: Controlled with using ProAir as needed, up-to-date with her pneumonia vaccination, followed by Dr Sheila Jackson (3) Seasonal allergies: Comment: receiving allergy shots at [facility] in [place] Code(s): J30.2 - Other seasonal allergic rhinitis Plan: [facility] where she gets immunotherapy/allergy shots takes Claritin and montelukast as needed. (4) Anxiety: Comment: ff'd at [facility] Code(s): F41.9 - Anxiety disorder, unspecified Plan: [facility]ed [facility], currently doing well on sertraline and hydroxyzine as needed for acute anxiety attacks (5) Morbid obesity: Code(s): E66.01 - Morbid (severe) obesity due to excess calories Plan: Referred to see a supervisor vat house, for dietary guidance, stressed importance of doing regular exercise. (6) Trichotillomania: Code(s): F63.3 - Trichotillomania Plan: She has cut her extremely short to avoid pulling it Coding Level of Care Code Est Pt Prev Care 18-39y(23676) Diagnoses Annual visit for general adult medical examination with abnormal findings Z00.01 Mild intermittent asthma without complication J45.20 Asthma complication type: uncomplicated Seasonal allergies J30.2 Anxiety F41.9 Morbid obesity E66.01 Trichotillomania F63.3 Additional Codes MILTON-7 Assessment Billing - MILTON-7 Assessment Tool: MILTON-7 Assessment [id number] ([id number])
[2023-11-19 11:05] VITALS: BP 100/78; PULSE 74; O2SAT 97; BMI 56.5
== END 2023-11-19 11:47 | disposition home or self-care (01) ==
LOC: HO.HMGC 10:56
PROVIDERS: PCP Internal Medicine; Visit Provider Internal Medicine
DX: Z00.00 Encounter for general adult medical examination without abnormal findings (principal); J45.20 Mild intermittent asthma, uncomplicated; E66.01 Morbid (severe) obesity due to excess calories; Z68.43 Body mass index [BMI] 50.0-59.9, adult; J30.2 Other seasonal allergic rhinitis; F41.9 Anxiety disorder, unspecified; F63.3 Trichotillomania
CPT/HCPCS: 99395

== ENCOUNTER 2024-02-16 18:48 | Emergency (ER) | payer OTHER, SELFPAY ==
--- NOTE | ~2024-02-16 | US_ITS ---
EXAMINATION: US ABDOMEN LIMITED CLINICAL INFORMATION: Right upper quadrant. COMPARISON: None available. TECHNIQUE: Real-time imaging of the gallbladder and common bile duct only. FINDINGS: GALLBLADDER: Normal. The gallbladder is physiologically distended without evidence of stones, sludge, polyps, wall thickening or pericholecystic fluid. COMMON BILE DUCT: Normal in caliber measuring 0.4 cm in diameter. US/US abdomen limited IMPRESSION: Normal-appearing gallbladder and common bile duct.
[2024-02-16 18:50] VITALS: BP 128/83; PULSE 96; RESP 18; TEMP 36.4; O2SAT 97; BMI 44.6
--- NOTE | 2024-02-16 18:50 | ED.ABDPAIN ---
HPI - Abdominal Pain General Chief Complaint: Urogenital-Female Stated Complaint: Abd Pain Time Seen by Provider: 02/16/24 19:06 Source: patient Mode of arrival: ambulatory Limitations: no limitations History of Present Illness ED Provider: Mayank Gottlieb PA-C HPI narrative: 38 yo female presents to the ER for evaluation of a constant, dull, ache in her lower abdominal area associated with increased urinary frequency and urgency that started today. She denies dysuria, vaginal discharge, N/V/D, fever or chills. She is currently on her menstrual period. Patient reports since coming to the ER the pain has migrated up to the right upper abdomen. MD elicited complaint: abdominal pain Pertinent past history: none Onset (ago): hour(s) Pain Consistency: constant Location: suprapubic Severity: mild Pain scale (0-10): 4 Quality: aching Radiation: none Migration to: no migration Exacerbating factors: nothing Relieving factors: nothing Associated symptoms: denies other symptoms Related Data Patient : No Home Medications ?Medication ?Instructions ?Recorded ?Confirmed albuterol sulfate 90 mcg/actuation 2 puff inhalation Q6H PRN 06/22/20 11/19/23 aerosol inhaler (ProAir HFA) fluticasone propionate 44 2 puff inhalation BID 06/22/20 11/19/23 mcg/actuation HFA aerosol inhaler (Flovent HFA) montelukast 10 mg tablet 0 mg PO 08/15/21 11/19/23 cholecalciferol (vitamin D3) 50 50 mcg PO DAILY 11/09/22 11/19/23 mcg (2,000 unit) capsule loratadine 10 mg tablet (Claritin) 10 mg PO DAILY 08/06/23 11/19/23 sertraline 100 mg tablet 200 mg PO DAILY 11/20/23 11/20/23 Previous Rx's ?Medication ?Instructions ?Recorded hydroxyzine HCl 25 mg tablet 25 mg PO Q8H PRN itching #30 tabs 02/17/21 nitrofurantoin 100 mg PO Q12H 3 days #6 caps 02/16/24 monohydrate/macrocrystals 100 mg capsule (Macrobid) Allergies Allergy/AdvReac Type Severity Reaction Status Date / Time No Known Allergies Allergy Verified 02/16/24 18:52 [No Known Allergies*] Review of Systems Review of Systems Yes all other systems are reviewed and are negative [facility] Past Medical History Medical History (Updated 02/17/24 @ 00:01 by Melia Almanza) Well woman exam Morbid obesity Mild intermittent asthma Seasonal allergies Pre-eclampsia Trichotillomania Anxiety Surgical History No pertinent past surgical history Family History Family History Father Diabetes Substance use disorder Mental health disorder Mother HTN (hypertension) High cholesterol Elevated blood ketone body level Depression with anxiety Cervical cancer Diabetes Fibromyalgia CVD (cardiovascular disease) Substance use disorder Mental health disorder Maternal Grandmother Liver disease HIV (human immunodeficiency virus infection) Substance use disorder Mental health disorder Maternal Grandfather Murder Maternal Aunt Substance use disorder Mental health disorder Paternal Aunt Substance use disorder Mental health disorder Maternal Grandfather Substance use disorder Mental health disorder Brother Mental health disorder Brother Mental health disorder Brother Mental health disorder Social History Social History Household Members: Spouse Household Members Other:: son Housing: House Alcohol intake: current Alcohol intake frequency: holidays/special occasions only Alcohol type: wine Patient Tobacco Use Status: Never used Tobacco e-Cigarette/Vaping Use: Never Used Advance Directives: No Advance Directives Information Provided: No Patient : No service: No Current occupational status: employed 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 Oriented X3. No acute distress. HEENT: normal external inspection Neck: Normal inspection. Neck supple. CVS: Normal heart rate and rhythm. Pulses normal. Respiratory: No respiratory distress. Breath sounds normal. Abdomen: obese, soft with RUQ tenderness, no rebound or guarding, + suprapubic tenderness, normal active +BS x4 Skin: Skin warm and dry. Normal skin color. Normal skin turgor. No rashes. Extremities: No lower extremity edema. No joint swelling. Neuro/psych: Oriented X 3. No motor deficit. No sensory deficit. CN II-XII intact. Normal speech and cognition. Course Course Course Narrative: This is a Rapid Medical Examination (RME) performed by Mayank Gottlieb PA-C in triage. Full HPI, ROS, assessment and treatment plan per primary provider in the Main ED. 38 yo female with history of obeisty, asthma, anxiety presents to the ER for evaluation of lower abdominal pain that started today. She also reports urinary frequency and urgency no dysuria. Plan: Medical Decision Making Medical Decision Making MDM Narrative: 38-year-old female with history of asthma, allergies, anxiety, morbid obesity presents to the ER for evaluation of lower abdominal pain and urinary frequency that started today. Since arrival to the ER she developed right upper quadrant pain. No associated nausea, vomiting, diarrhea. She does have some right upper quadrant tenderness on examination so right upper quadrant ultrasound was ordered. Her lab workup was unremarkable including no leukocytosis, very mild elevation of ALT only. No elevation of other LFTs to suggest biliary obstruction. Her urinalysis is not convincing for urinary tract infection. RUQ U/S was normal. no N/V/D here in the ER. She is hungry. at this time comfortable w/ discharge home with empiric abx for uti given her urinary frequency and suprapubic pain. Differential Diagnosis Differential Diagnoses: The differential diagnosis associated with the presentation includes Acute cholecystitis, biliary colic, UTI, pyelonephritis, kidney stone, STI, indigestion, colitis Lab Data [facility] Lab Attestation statement: I reviewed the patient's lab results. No leukocytosis, normal renal function, isolated elevation of ALT which is very mild 02/16/24 20:09 02/16/24 20:09 Labs: Lab Results 02/16/24 02/16/24 Range/Units 19:16 20:09 WBC 7.4 (4.8-10.8) X10*3/uL RBC 5.25 (4.20-5.50) X10*6/uL Hgb 13.0 (12.0-16.0) g/dl Hct 39.4 (37.0-47.0) % MCV 75.0 L (80.0-98.0) fL MCH 24.8 L (27.0-33.0) pg MCHC 33.0 (31.0-35.0) g/dl RDW 13.7 (11.0-16.0) % Plt Count 230 (160-400) X10*3/uL MPV 10.6 (9.4-12.3) fL Immature Gran % (Auto) 0.3 (0.0-0.4) % Neut % (Auto) 59.9 (45-73) % Lymph % (Auto) 30.3 (20-40) % [place] % (Auto) 7.5 (2-11) % Eos % (Auto) 1.5 (0-4) % Baso % (Auto) 0.5 (0-2) % Lymph # (Auto) 2.3 (1.2-4.9) X10*3/uL [place] # (Auto) 0.6 (0.1-1.2) X10*3/uL Eos # (Auto) 0.1 (0.0-0.4) X10*3/uL Baso # (Auto) 0.0 (0.0-0.2) X10*3/uL Abs Immat Gran (auto) 0.02 (0.00-0.03) X10*3/uL Absolute Neuts (auto) 4.4 (2.0-8.3) x10*3/uL Absolute Nucleated RBC 0.000 (0.0-0.012) X10*3/uL Nucleated RBC % (auto) 0.0 (0.0-0.2) /100WBC Sodium 141 (135-145) mmol/L Potassium 4.2 (3.3-5.1) mmol/L Chloride 109 H (96-108) mmol/L Carbon Dioxide 22 (22-29) mmol/L Anion Gap 14 (12-20) BUN 13 (9-16) mg/dL Creatinine 0.81 (0.5-1.4) mg/dL Estim Creat Clear Calc 130.5 Estimated GFR > 60 Random Glucose 82 (60-115) mg/dL Calcium 9.0 (8.4-10.2) mg/dL Magnesium 1.9 (1.6-2.6) mg/dL Total Bilirubin 0.3 (0.0-1.0) mg/dL Direct Bilirubin 0.1 (0.0-0.5) mg/dL AST 30 (5-31) U/L ALT 53 H (0-31) U/L Alkaline Phosphatase 78 (39-117) U/L Total Protein 7.7 (6.5-8.0) g/dL Albumin 4.1 (3.5-5.0) g/dL Lipase 23 (8-78) U/L Urine Color Yellow Urine Appearance Clear Urine pH 5.5 (5.0-9.0) Ur Specific [place] 1.020 (1.005-1.025) Urine Protein Negative (Neg-Trace) mg/dL Urine Glucose (UA) Negative (Negative) mg/dL Urine Ketones Negative (Negative) mg/dL Urine Blood Large (3+) H (Negative) Urine Nitrite Negative (Negative) Ur Leukocyte Esterase Trace H (Negative) Urine RBC 6-10 H (0-2) /HPF Urine WBC 0-5 (0-5) /HPF Ur Squamous Epith Cells 3-5 (0-2) /HPF Urine Bacteria Trace (None Seen) Hyaline Casts 0-2 (0-2) /LPF Urine Test NEGATIVE (NEGATIVE) Independent Interpretation I performed an independent interpretation of an: Ultrasound Interpretation: no visible stones, no GB wall thickening Radiology Impression Discussion of test interpretation with radiology: I have reviewed the radiologist's reading. Radiologist Impression: EXAMINATION: US ABDOMEN LIMITED CLINICAL INFORMATION: Right upper quadrant. COMPARISON: None available. TECHNIQUE: Real-time imaging of the gallbladder and common bile duct only. FINDINGS: GALLBLADDER: Normal. The gallbladder is physiologically distended without evidence of stones, sludge, polyps, wall thickening or pericholecystic fluid. COMMON BILE DUCT: Normal in caliber measuring 0.4 cm in diameter. US/US abdomen limited IMPRESSION: Normal-appearing gallbladder and common bile duct. External Record Review External record reviewed: Outpatient record and Prior outpatient labs Tests considered The following testing was considered but not selected: CT scan of the abdomen was considered Prescription Management I considered prescription management with: Pain Medication and Antibiotic Critical Care Time Critical Care Time Critical Care Time: No Discharge Plan Discharge Clinical Impression: Abdominal pain Patient Disposition: Home, Self-Care Instructions: Abdominal Pain (ED) Additional Instructions: Your lab workup today was unremarkable. Your ultrasound was normal. Your urinalysis was mildly positive for possible urinary tract infection. Take the prescribed antibiotics as directed, complete the entire course and do not miss any doses Stick to a bland diet where not feeling well. Recommend Pepto-Bismol as needed for upset stomach. If you develop new or worsening symptoms call 911 or come back to the ER for further evaluation. Prescriptions: New nitrofurantoin monohyd/m-cryst [Macrobid] 100 mg capsule 100 mg PO Q12H 3 Days Qty: 6 0RF Rx Instructions: must administer with a meal/food No Action hydroxyzine HCl 25 mg tablet 25 mg PO Q8H PRN (Reason: itching) Qty: 30 1RF montelukast 10 mg tablet 0 mg PO cholecalciferol (vitamin D3) 50 mcg (2,000 unit) capsule 50 mcg PO DAILY sertraline 100 mg tablet 200 mg PO DAILY Flovent HFA 44 mcg/actuation HFA aerosol inhaler 2 puff inhalation BID Rx Instructions: administer with spacer albuterol sulfate [ProAir HFA] 90 mcg/actuation HFA aerosol inhaler 2 puff inhalation Q6H PRN loratadine [Claritin] 10 mg tablet 10 mg PO DAILY Interventions: ED Discharge Assessment Last Done: 02/16/24 21:13 Discharge Date/Time: 02/16/24 21:13 Print Language: Hong Konger
[2024-02-16 19:26] LABS: Appearance Urine Clear; Color Urine Yellow; Glucose Urine UA Negative (Negative); Leukocyte Esterase Urine Trace (Negative); Nitrite Urine Negative (Negative); PH 5.5 (5.0-9.0); UMIC TRIGGER UACC YES; Urine Blood Large (3+) (Negative); Urine Ketones Negative (Negative); Urine Protein Negative (Neg-Trace)
[2024-02-16 19:28] LABS: UPreg QC Valid YES; Urine Pregnancy NEGATIVE (NEGATIVE)
[2024-02-16 19:31] LABS: Bacteria Urine Trace (None Seen); Hyaline Casts Urine 0-2 /LPF (0-2); WBC Urine 0-5 /HPF (0-5)
[2024-02-16 20:01] VITALS: BP 114/72; PULSE 85; RESP 16; TEMP 36.1; O2SAT 97
[2024-02-16 20:16] LABS: MANUAL DIFF FLAG NO
[2024-02-16 20:19] LABS: Basophils Percent Auto 0.5 % (0-2); Eosinophils Absolute Auto 0.1 X10*3/uL (0.0-0.4); Eosinophils Percent Auto 1.5 % (0-4); Hematocrit 39.4 % (37.0-47.0); Imm Gran Abs Auto 0.02 X10*3/uL (0.00-0.03); Imm Gran Pct Auto 0.3 % (0.0-0.4); Lymphocytes Absolute Auto 2.3 X10*3/uL (1.2-4.9); Lymphocytes Percent Auto 30.3 % (20-40); Mean Corpuscular Hemoglobin 24.8 pg (27.0-33.0); Mean Platelet Volume 10.6 fL (9.4-12.3); Monocytes Absolute Auto 0.6 X10*3/uL (0.1-1.2); Monocytes Percent Auto 7.5 % (2-11); Neutrophils Absolute Auto 4.4 x10*3/uL (2.0-8.3); Neutrophils Percent Auto 59.9 % (45-73); Platelet Count 230 X10*3/uL (160-400); Red Blood Count 5.25 X10*6/uL (4.20-5.50); Red Cell Distribution Width 13.7 % (11.0-16.0); White Blood Count 7.4 X10*3/uL (4.8-10.8)
[2024-02-16 20:36] LABS: Alanine Aminotransferase 53 U/L (0-31); Albumin Level 4.1 g/dL (3.5-5.0); Alkaline Phosphatase 78 U/L (39-117); Anion Gap 14 (12-20); Aspartate Amino Transferase 30 U/L (5-31); Bilirubin Direct 0.1 mg/dL (0.0-0.5); Bilirubin Total 0.3 mg/dL (0.0-1.0); Blood Urea Nitrogen 13 mg/dL (9-16); Carbon Dioxide 22 mmol/L (22-29); Chloride 109 mmol/L (96-108); Creatinine Clr Calc Pharmacy 130.5; Estimated Glomerular Filt Rate > 60; Glucose Random 82 mg/dL (60-115); Lipase 23 U/L (8-78); Magnesium 1.9 mg/dL (1.6-2.6); Potassium 4.2 mmol/L (3.3-5.1); Sodium 141 mmol/L (135-145); Total Protein 7.7 g/dL (6.5-8.0)
[2024-02-16 21:13] VITALS: BP 114/72; PULSE 85; RESP 16; TEMP 36.1; O2SAT 97
== END 2024-02-16 21:13 | disposition home or self-care (01) ==
PROVIDERS: Physician Assistant; Emergency Provider Emergency Medicine; PCP Internal Medicine
DX: R10.11 Right upper quadrant pain (principal); R35.0 Frequency of micturition
CPT/HCPCS: 36415; 76705; 80048; 80076; 81001; 81025; 83690; 83735; 85025; 99283; 99284

== ENCOUNTER 2024-03-17 08:16 | Outpatient (REF) | payer OTHER, SELFPAY ==
[2024-03-17 10:41] LABS: Cholesterol 205 mg/dL (<200); HDL Cholesterol 50 mg/dL (>40); LDL Cholesterol Calculated 130 mg/dL (<100); Triglycerides 129 mg/dL (<150)
[2024-03-17 10:58] LABS: Vitamin D 25-OH Total 26.8 ng/mL (>30)
== END 2024-03-17 08:17 | disposition home or self-care (01) ==
LOC: HO.HMGCLDS 08:16
PROVIDERS: PCP Internal Medicine; Visit Provider Internal Medicine
DX: E66.01 Morbid (severe) obesity due to excess calories (principal); Z86.39 Personal history of other endocrine, nutritional and metabolic disease; Z13.220 Encounter for screening for lipoid disorders
CPT/HCPCS: 36415; 80061; 82306

== ENCOUNTER 2024-05-30 08:28 | Outpatient (AMB) | payer OTHER, SELFPAY ==
--- NOTE | 2024-05-30 08:29 | AM.OFFWIN_ITS ---
Intake Vital Signs 05/30/24 08:30 Height 5 ft 7 in Weight 294 lb BMI 46.0 BP 124/100 H Blood Pressure Location Rt brachial Position Sitting Pulse 76 Pulse Source Pulse Oximeter Pulse Oximetry (%) 98 Oxygen Delivery Method Room Air Intake Visit Reasons: EP migraines over a week Intake Note: Patient here for migraines thats have been going on for about 1 week. she has been having nausea and vomiting, not really eating. Patient Tobacco Use Status: Never used Tobacco Allergies No Known Allergies [No Known Allergies*] Allergy (Verified 05/30/24 08:32) Do you need a note to return to daycare/school/sports/work: Yes HPI HPI Comments History of Present Illness Details This is a 38-year-old female who presented to the walk-in clinic complaining of headaches for the past 1 week. Patient states these headaches started as what she thought was a sinus infection with some sinus pain/pressure; however, they have developed into a left-sided headache located behind her left eye and behind the bridge of her nose. She states she has been waking up with very mild headaches but the headache seemed to get worse as the day goes on. She reports associated photophobia/phonophobia. She reports associated nausea/vomiting. She denies any visual disturbances, visual auras, facial asymmetry, slurred speech, numbness/weakness/paresthesias of her extremities, fever/chills, neck pain/stiffness, confusion/drowsiness/lethargy, or ataxia. She states that she does occasionally get tingling of her left arm; however, she has had this in the past and has had negative workups in the emergency room and this has been attributed to her anxiety. She states that she typically does not get this tingling with the headaches. She denies any recent head trauma. She denies any history of blood pressure issues. She denies any family or personal history of CVA or bleeding disorders. [facility] Medical History (Updated 03/07/24 @ 11:59 by Helne Cardoza MD) History of vitamin D deficiency Well woman exam Morbid obesity Mild intermittent asthma Seasonal allergies Pre-eclampsia Trichotillomania Anxiety Surgical History No pertinent past surgical history Family History Father Diabetes Substance use disorder Mental health disorder Mother HTN (hypertension) High cholesterol Elevated blood ketone body level Depression with anxiety Cervical cancer Diabetes Fibromyalgia CVD (cardiovascular disease) Substance use disorder Mental health disorder Maternal Grandmother Liver disease HIV (human immunodeficiency virus infection) Substance use disorder Mental health disorder Maternal Grandfather Murder Maternal Aunt Substance use disorder Mental health disorder Paternal Aunt Substance use disorder Mental health disorder Maternal Grandfather Substance use disorder Mental health disorder Brother Mental health disorder Brother Mental health disorder Brother Mental health disorder Social History Household Members: Spouse Household Members Other:: son Housing: House Alcohol intake: current Alcohol intake frequency: holidays/special occasions only Alcohol type: wine Patient Tobacco Use Status: Never used Tobacco e-Cigarette/Vaping Use: Never Used service: No Current occupational status: employed 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 Sexual orientation: Straight/Heterosexual Gender identity: Female Cognitive needs: No Hearing needs: No Vision needs: No Female Reproductive History Menstrual Age of Menarche: 8 Review of Systems Const All systems reviewed & are unremarkable except as noted in HPI and below Reports no additional complaints Eyes Reports no additional complaints ENT Reports no additional complaints Card Reports no additional complaints Resp Reports no additional complaints GI Reports no additional complaints Reports no additional complaints Musc Reports no additional complaints Skin/Breast Reports system reviewed and no additional complaints, except as documented Neuro Reports no additional complaints Psych Reports no additional complaints Endo Reports no additional complaints Naif/Lymph Reports no additional complaints Aller/Immun Reports no additional complaints Physical Exam Const Other: Vital signs reviewed. Constitutional: Non-toxic appearing. No acute distress. Well-developed and well-nourished. HEENT: Normocephalic and atraumatic. No meningeal signs. Pupils equal round and reactive to light, extraocular movements are intact. Skin: Warm and dry. No rashes or lesions noted. Neck: Full and painless range of motion. No cervical lymphadenopathy. Cardio: Regular rate and rhythm. No murmurs, gallops, or rubs. No lower extremity edema. No JVD. Pulmonary: No respiratory distress. No accessory muscle usage. Clear to auscultation bilaterally without wheezing, crackles, or rhonchi. Gastrointestinal: Soft, nontender, and nondistended in all 4 quadrants. Normoactive bowel sounds in all 4 quadrants. Musculoskeletal: Normal range of motion in joints throughout the body. No deformity or other signs of injury. Neuro: Alert and oriented x4. Cranial nerves 2-12 intact. No ataxia with ipollj-jnwe-qjeukh bilaterally. Facial movements are equal and symmetric. 5/5 strength of bilateral lower and upper extremities. Sensation intact to face and bilateral upper and lower extremities. No focal deficits or motor/sensory deficits appreciated. Psych: Normal mood and affect. Assessment & Plan Assessment & Plan (1) Migraine: Code(s): G43.909 - Migraine, unspecified, not intractable, without status migrainosus Qualifiers: Migraine type: unspecified Status migrainosus presence: without status migrainosus Intractability: not intractable Qualified Code(s): G43.909 - Migraine, unspecified, not intractable, without status migrainosus Plan: This is a 38-year-old female who presented to the walk-in clinic complaining of migraine headaches for the past 1 week. Patient has no red flag symptoms associated with the headache and she has no recent head trauma. She is completely neurologically intact without focal or motor/sensory deficits. I explained to the patient that this is likely migraine headache; however, I can not rule out a more serious conditions such as intracranial hemorrhage (although my suspicion for this is low given a completely normal neurological examination but the patient did have a very mildly elevated diastolic blood pressure of 100) or meningitis (although low suspicion of this given no significant neck pain/stiffness, lethargy/confusion, or fever/chills. Patient was sent home with a prescription for p.o. butalbital /acetaminophen/caffeine every 4-6 hours as needed for headache as well as p.o. ondansetron 4 mg every 6 hours as needed for nausea and vomiting. I also recommended cognitive rest including resting in a dark/quiet room and increasing fluid intake. Patient and her both feel safe about discharge home at this time; however, they were instructed to proceed directly to the emergency room if she were to develop any of the red flag symptoms discussed above and patient and her verbalized their understating and they agree with the plan. Medications: New eltunqkrnb-yttxgstzmeqoi-jewu 50-325-40 mg DO NOT TAKE MORE THAN 6 TABLETS IN A 24 HOUR PERIOD 1 tab PO Q4-6H PRN 14 tabs 0RF headache Syl Magri, PA zkbxsnyryl-xjrptgvrjfhso-ibdj 50-325-40 mg DO NOT TAKE MORE THAN 6 TABLETS IN A 24 HOUR PERIOD 1 tab PO Q4-6H PRN 14 tabs 0RF headache Judy Sanchez PA-C ondansetron 4 mg PO Q6H PRN 10 tabs 0RF nausea and vomiting LEEANNE Chauhan Coding Level of Care Code Est Pt Level 3 (73275) Diagnoses Migraine without status migrainosus, not intractable, unspecified migraine type G43.909 Migraine type: unspecified Status migrainosus presence: without status migrainosus Intractability: not intractable
[2024-05-30 08:30] VITALS: BP 124/100; PULSE 76; O2SAT 98; BMI 46.0
== END 2024-05-30 09:04 | disposition home or self-care (01) ==
PROVIDERS: PCP Internal Medicine; Visit Provider Physician Assistant Medical
DX: G43.909 Migraine, unspecified, not intractable, without status migrainosus (principal)

== ENCOUNTER → 2024-05-30 08:28 | Outpatient (BNVA) | payer OTHER, SELFPAY | PROVIDERS: PCP Internal Medicine | DX: G43.909 Migraine, unspecified, not intractable, without status migrainosus (principal) ==

== ENCOUNTER 2024-05-31 18:43 | Emergency (ER) | payer OTHER, SELFPAY ==
--- NOTE | ~2024-05-31 | CT_ITS ---
EXAMINATION: CT HEAD WITHOUT CONTRAST CLINICAL INFORMATION: Headache. COMPARISON: None. TECHNIQUE: Contiguous axial imaging was performed from the skull base to vertex without intravenous administration of contrast. Coronal and sagittal reformatted images are performed at the CT scanner. This CT examination was performed using dose optimization techniques as appropriate, variously including the following: *Automated exposure control *Adjustment of mA and/or kV according to patient size (this includes techniques or standardized protocols for targeted exams where dose is matched to indication/reason for exam; i.e. extremities or head) *Use of iterative reconstruction technique DLP: 769 mGy-cm. FINDINGS: There is no evidence of acute intracranial hemorrhage or territorial infarction. No abnormal mass-effect or midline shift is seen. Ely to white matter differentiation is well preserved. No extra-axial fluid collections are identified. The ventricles are normal in size. There is no abnormal attenuation within the brain parenchyma. There is no osseous abnormality. The mastoid air cells and visualized portions of the paranasal sinuses are well-aerated. CT/CT head/brain wo IV con IMPRESSION: No acute intracranial pathology. Electronically signed by: Shahbaz Cardenas MD 05/31/2024 11:50 PM EDT
[2024-05-31 19:13] VITALS: BP 140/95; PULSE 74; RESP 16; TEMP 37; O2SAT 99; BMI 45.4
[2024-05-31 20:05] LABS: MANUAL DIFF FLAG NO
[2024-05-31 20:10] LABS: Basophils Absolute Auto 0.1 X10*3/uL (0.0-0.2); Basophils Percent Auto 0.7 % (0-2); Eosinophils Absolute Auto 0.2 X10*3/uL (0.0-0.4); Eosinophils Percent Auto 2.2 % (0-4); Hematocrit 41.1 % (37.0-47.0); Hemoglobin 13.5 g/dl (12.0-16.0); Imm Gran Abs Auto 0.02 X10*3/uL (0.00-0.03); Imm Gran Pct Auto 0.3 % (0.0-0.4); Lymphocytes Percent Auto 28.8 % (20-40); Mean Corpuscular HGB Conc 32.8 g/dl (31.0-35.0); Mean Corpuscular Volume 76.1 fL (80.0-98.0); Mean Platelet Volume 10.1 fL (9.4-12.3); Monocytes Absolute Auto 0.4 X10*3/uL (0.1-1.2); Monocytes Percent Auto 5.6 % (2-11); Neutrophils Absolute Auto 4.4 x10*3/uL (2.0-8.3); Neutrophils Percent Auto 62.4 % (45-73); Platelet Count 250 X10*3/uL (160-400); Red Cell Distribution Width 13.2 % (11.0-16.0)
[2024-05-31 20:19] LABS: Anion Gap 13 (12-20); Blood Urea Nitrogen 11 mg/dL (9-16); Calcium 9.3 mg/dL (8.4-10.2); Carbon Dioxide 26 mmol/L (22-29); Chloride 105 mmol/L (96-108); Estimated Glomerular Filt Rate > 60; Glucose Random 86 mg/dL (60-115); Potassium 3.9 mmol/L (3.3-5.1); Sodium 140 mmol/L (135-145)
[2024-05-31 20:21] LABS: COVID-19 Test Negative (Negative); IDNOW Serial# 152EDE1D
[2024-05-31 20:22] LABS: IDNOW Serial# 08D9AD1C; Influenza A Negative (Negative)
[2024-05-31 20:23] LABS: Influenza B2 Negative (Negative)
[2024-05-31 22:57] VITALS: BP 120/81; PULSE 73; RESP 16; TEMP 36.9; O2SAT 99
--- NOTE | 2024-05-31 23:12 | ED_ITS ---
HPI - General Adult General Chief complaint: Headache Stated complaint: migraines, high bp, no hx of migraine Time Seen by Provider: 05/31/24 23:12 History of Present Illness ED Provider: Mary HERRERA narrative: The patient is a 38-year-old female presents to the emergency room for evaluation of a headache. She says that she has had the headache for about 10 or 11 days. The headache was not sudden in onset but has gotten worse over the last 10 or 11 days. She says that the headache waxes and wanes but it has never completely gone away. It is often worse in the afternoons. She feels the headache mostly in the frontal portion of the head and somewhat behind the left eye. There is no photophobia associated with this. No phonophobia. No fever, sweats, chills. No neck stiffness. No altered mental status. She says that she went to an urgent care center yesterday and was prescribed Fioricet and has had no relief with Fioricet. She has never had a headache like this before. She has never had any history of significant headaches in the past. Related Data Home Medications ?Medication ?Instructions ?Recorded ?Confirmed albuterol sulfate 90 mcg/actuation 2 puff inhalation Q6H PRN 06/22/20 11/19/23 aerosol inhaler (ProAir HFA) fluticasone propionate 44 2 puff inhalation BID 06/22/20 11/19/23 mcg/actuation HFA aerosol inhaler (Flovent HFA) montelukast 10 mg tablet 0 mg PO 08/15/21 11/19/23 cholecalciferol (vitamin D3) 50 50 mcg PO DAILY 11/09/22 11/19/23 mcg (2,000 unit) capsule loratadine 10 mg tablet (Claritin) 10 mg PO DAILY 08/06/23 11/19/23 sertraline 100 mg tablet 200 mg PO DAILY 11/20/23 11/20/23 trazodone 50 mg tablet 50 mg PO BEDTIME 05/30/24 Previous Rx's ?Medication ?Instructions ?Recorded sawjanksah-jfvsssikscuxf-zcasfygl 1 tab PO Q4-6H PRN headache #14 05/30/24 50 mg-325 mg-40 mg tablet tabs ondansetron 4 mg disintegrating 4 mg PO Q6H PRN nausea and 05/30/24 tablet vomiting #10 tabs Allergies Allergy/AdvReac Type Severity Reaction Status Date / Time shellfish derived Allergy Rash Verified 05/31/24 19:16 prochlorperazine AdvReac Intermediate Shakiness Verified 06/01/24 00:36 [From Compazine] Review of Systems 2 Review of Systems: Yes all other systems are reviewed and are negative ON LICENSE OF [facility] Past Medical History Medical History (Updated 06/01/24 @ 00:25 by Jonathan Hernandez MD) History of vitamin D deficiency Well woman exam Morbid obesity Mild intermittent asthma Seasonal allergies Pre-eclampsia Trichotillomania Anxiety Surgical History No pertinent past surgical history Family History Family History Father Diabetes Substance use disorder Mental health disorder Mother HTN (hypertension) High cholesterol Elevated blood ketone body level Depression with anxiety Cervical cancer Diabetes Fibromyalgia CVD (cardiovascular disease) Substance use disorder Mental health disorder Maternal Grandmother Liver disease HIV (human immunodeficiency virus infection) Substance use disorder Mental health disorder Maternal Grandfather Murder Maternal Aunt Substance use disorder Mental health disorder Paternal Aunt Substance use disorder Mental health disorder Maternal Grandfather Substance use disorder Mental health disorder Brother Mental health disorder Brother Mental health disorder Brother Mental health disorder Social History Social History Household Members: Spouse Household Members Other:: son Housing: House Alcohol intake: current Alcohol intake frequency: holidays/special occasions only Alcohol type: wine Patient Tobacco Use Status: Never used Tobacco Smoked in Last 30 Days: No e-Cigarette/Vaping Use: Never Used Substance Use Type: Marijuana Advance Directives: No Advance Directives Information Provided: No Patient : No service: No Current occupational status: employed 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 She does not seem toxic or in distress. Orientation/consciousness: patient oriented x3 HENMT Other: Face is symmetrical. Mucous membranes moist. Eyes General: appearance normal, both eyes and all related structures Conjunctivae: conjunctivae normal Sclerae: sclerae normal Pupils: Equal, round and reactive pupils present EOM: EOMs intact bilaterally Neck Neck: Yes full ROM Resp Effort & Inspection: normal respiratory effort Auscultation: clear to auscultation bilaterally Cardio Rate: regular rate Rhythm: regular rhythm Heart sounds: S1 normal heart sound present and S2 normal heart sound present Skin General skin exam: no rashes or lesions noted Neuro General: patient oriented x3 Cranial nerves: Yes CN's II-XII intact bilaterally and Yes Equal, round and reactive pupils present Cognition (Neuro): normal cognition Gait exam (Neuro): Normal gait present Motor exam (neuro): 5/5 motor strength present throughout Extrem General: Yes full ROM and Yes no pedal edema Medications Administered Discontinued Medications Generic Name Dose Route Start Last Admin Trade Name Aidan PRN Reason Stop Dose Admin Diphenhydramine HCl 25 mg 05/31/24 23:23 05/31/24 23:49 Diphenhydramine Hcl 50 Mg/Ml Vial IVPUSH 05/31/24 23:24 25 mg ONCE ONE Administration Diphenhydramine HCl 25 mg 06/01/24 00:10 06/01/24 00:14 Diphenhydramine Hcl 50 Mg/Ml Vial IVPUSH 06/01/24 00:11 25 mg ONCE ONE Administration Sodium Chloride 1,000 mls @ 999 mls/hr 05/31/24 23:30 05/31/24 23:46 Ns IV 06/01/24 00:30 999 mls/hr .Q1H1M HONG Administration Ketorolac Tromethamine 15 mg 05/31/24 23:23 05/31/24 23:48 Ketorolac Tromethamine 15 Mg/Ml Vial IVPUSH 05/31/24 23:24 15 mg ONCE ONE Administration Prochlorperazine Edisylate 10 mg 05/31/24 23:23 05/31/24 23:49 Prochlorperazine Edisylate 10 Mg/2 Ml Vial IVPUSH 05/31/24 23:24 10 mg ONCE ONE Administration Medical Decision Making Medical Decision Making [facility] Narrative: The patient is a 38-year-old female with no history of headaches of any significance who presents for evaluation of a headache that has been bothering her for 1 week. The headache was not a thunderclap headache. She has had no fever. She was seen at an urgent care yesterday and prescribed Fioricet but had no relief. She does not appear toxic and her neurological exam is unremarkable. Given the absence of any prior headache history I obtained a head CT that was negative. She was treated with ketorolac, prochlorperazine, and diphenhydramine. She felt very restless following the prochlorperazine but had complete resolution of her headache. She was eager for discharge. She should follow up with her PCP. Lab Data 05/31/24 19:58 05/31/24 19:58 Labs: Lab Results 05/31/24 05/31/24 Range/Units 19:19 19:58 WBC 7.0 (4.8-10.8) X10*3/uL RBC 5.40 (4.20-5.50) X10*6/uL Hgb 13.5 (12.0-16.0) g/dl Hct 41.1 (37.0-47.0) % MCV 76.1 L (80.0-98.0) fL MCH 25.0 L (27.0-33.0) pg MCHC 32.8 (31.0-35.0) g/dl RDW 13.2 (11.0-16.0) % Plt Count 250 (160-400) X10*3/uL MPV 10.1 (9.4-12.3) fL Immature Gran % (Auto) 0.3 (0.0-0.4) % Neut % (Auto) 62.4 (45-73) % Lymph % (Auto) 28.8 (20-40) % Brewster % (Auto) 5.6 (2-11) % Eos % (Auto) 2.2 (0-4) % Baso % (Auto) 0.7 (0-2) % Lymph # (Auto) 2.0 (1.2-4.9) X10*3/uL Brewster # (Auto) 0.4 (0.1-1.2) X10*3/uL Eos # (Auto) 0.2 (0.0-0.4) X10*3/uL Baso # (Auto) 0.1 (0.0-0.2) X10*3/uL Abs Immat Gran (auto) 0.02 (0.00-0.03) X10*3/uL Absolute Neuts (auto) 4.4 (2.0-8.3) x10*3/uL Absolute Nucleated RBC 0.000 (0.0-0.012) X10*3/uL Nucleated RBC % (auto) 0.0 (0.0-0.2) /100WBC Sodium 140 (135-145) mmol/L Potassium 3.9 (3.3-5.1) mmol/L Chloride 105 (96-108) mmol/L Carbon Dioxide 26 (22-29) mmol/L Anion Gap 13 (12-20) BUN 11 (9-16) mg/dL Creatinine 0.92 (0.5-1.4) mg/dL Estim Creat Clear Calc 116.0 Estimated GFR > 60 Random Glucose 86 (60-115) mg/dL Calcium 9.3 (8.4-10.2) mg/dL Beta HCG, Quant < 2 mIU/mL COVID-19 (BASHIR) Negative (Negative) COVID-19 Clin Com See Note Influenza Type A (KARLEY) Negative (Negative) Influenza Type B (KARLEY) Negative (Negative) Influenza A & B Note See Note Discharge Plan Discharge Clinical Impression: Headache Patient Disposition: Home, Self-Care Additional Instructions: The CT scan of your head was unremarkable. Your other testing is also unremarkable. Since your headache responded well to the medications you received tonight it is possible your headache was a migraine headache. However please note that you had an adverse reaction to one of the medicines we gave you. This medication was prochlorperazine, commonly known as Compazine. Although this may have helped your headache you should let people know that you had an adverse reaction to this medication you have any need for nausea or headache treatment in the future. Please contact your regular doctor on Sunday for a follow up appointment to discuss your headache further. Return to the emergency room if you feel significantly worse. Prescriptions: No Action montelukast 10 mg tablet 0 mg PO cholecalciferol (vitamin D3) 50 mcg (2,000 unit) capsule 50 mcg PO DAILY sertraline 100 mg tablet 200 mg PO DAILY Flovent HFA 44 mcg/actuation HFA aerosol inhaler 2 puff inhalation BID Rx Instructions: administer with spacer albuterol sulfate [ProAir HFA] 90 mcg/actuation HFA aerosol inhaler 2 puff inhalation Q6H PRN loratadine [Claritin] 10 mg tablet 10 mg PO DAILY trazodone 50 mg tablet 50 mg PO BEDTIME ondansetron 4 mg tablet,disintegrating 4 mg PO Q6H PRN (Reason: nausea and vomiting) Qty: 10 0RF aytzcywlvq-bfzbymyqcwini-lvou 50-325-40 mg tablet 1 tab PO Q4-6H PRN (Reason: headache) Qty: 14 0RF Rx Instructions: DO NOT TAKE MORE THAN 6 TABLETS IN A 24 HOUR PERIOD Referrals: Helen Cardoza MD [Primary Care Provider] - (Headache) Interventions: ED Discharge Assessment Last Done: 06/01/24 00:33 Discharge Date/Time: 06/01/24 01:24 Print Language: Ethiopian
[2024-05-31] MEDS: 0.9 % Sodium Chloride 1,000 ML 999 ML IV (23:46)
[2024-05-31] MEDS: Ketorolac Tromethamine 15 MG/ML VIAL IVPUSH (23:48)
[2024-05-31] MEDS: Prochlorperazine Edisylate 10 MG/2 ML VIAL IVPUSH (23:49)
[2024-05-31] MEDS: diphenhydrAMINE HCL 50 MG/ML VIAL 25 MG IVPUSH (23:49)
[2024-06-01 00:02] LABS: HCG Quantitative < 2 mIU/mL
[2024-06-01] MEDS: diphenhydrAMINE HCL 50 MG/ML VIAL 25 MG IVPUSH (00:14)
[2024-06-01 00:33] VITALS: BP 120/81; PULSE 73; RESP 16; TEMP 36.9; O2SAT 99
== END 2024-06-01 01:24 | disposition home or self-care (01) ==
PROVIDERS: Emergency Provider Emergency Medicine; PCP Internal Medicine
DX: R51.9 Headache, unspecified (principal); J45.20 Mild intermittent asthma, uncomplicated; Z79.899 Other long term (current) drug therapy
CPT/HCPCS: 70450; 80048; 84702; 85025; 87502; 87635; 96374; 96375; 99284; J0737; J1200; J1885

== ENCOUNTER 2024-06-17 13:20 | Outpatient (AMB) | payer OTHER, SELFPAY ==
[2024-06-17 13:53] VITALS: BP 110/80; PULSE 71; O2SAT 97; BMI 47.0
--- NOTE | 2024-06-17 13:53 | A.OFFPC_ITS ---
Vital Signs 06/17/24 13:53 Height 5 ft 7 in Weight 300 lb BMI 47.0 BP 110/80 Blood Pressure Location Rt brachial Position Sitting Pulse 71 Pulse Source Pulse Oximeter Pulse Oximetry (%) 97 Oxygen Delivery Method Room Air Intake Visit Reasons: new onset of migraine, hypertension Intake Note: Pt is here today c/o new onset of migraine and HTN Allergies shellfish derived Allergy (Verified 06/17/24 15:43) Rash prochlorperazine [From Compazine] Adverse Reaction (Intermediate, Verified 06/17/24 15:43) Shakiness Medication List - Last Reconciled 06/17/24 by Helen Cardoza MD albuterol sulfate 90 mcg/actuation (ProAir HFA) 2 puffs inhalation Q6H PRN cholecalciferol (vitamin D3) 50 mcg PO DAILY fluticasone propionate 44 mcg/actuation (Flovent HFA) 2 puffs inhalation BID loratadine (Claritin) 10 mg PO DAILY montelukast 0 mg PO ondansetron 4 mg PO Q6H PRN sertraline 200 mg PO DAILY sumatriptan succinate take 1 tab at onset of headache; if no relief, may repeat 1 tab after at least 2 hrs; max = 2 tabs/24 hrs PO trazodone 50 mg PO BEDTIME Tobacco use date assessed: 06/17/24 Dental Screening Dental Screen Date: 06/17/24 Did you have a dental visit in the last 12 months?: Yes Did you have a dental problem in the last 6 months where you did not have access to dental care?: No Was dental information given to patient?: Patient has dentist HPI new onset of migraine, hypertension HPI Details 38-year-old lady here today for follow-u p. She has been to the ER and urgent care clinic twice complaining of frontal headaches She says that she has had the headache for about 10 or 11 days. The headache was not sudden in onset but has gotten worse over the last 10 or 11 days. She says that the headache waxes and wanes but it has never completely gone away. It is often worse in the afternoons. She feels the headache mostly in the frontal portion of the head and somewhat behind the left eye. There is no photophobia associated with this. No phonophobia. No fever, sweats, chills. No neck stiffness. No altered mental status. She says that she went to an urgent care center yesterday and was prescribed Fioricet and has had no relief with Fioricet. She has never had a headache like this before. She has never had any history of significant headaches in the past. She was given diphenhydramine plus Toradol plus Compazine at the ER which afforded only temporary her headache relief. CT of head done at the ER showed no acute abnormality. At present, she denies having any headache, blood pressure today is within normal limits. [facility] Medical History Headache above the eye region History of vitamin D deficiency Morbid obesity Mild intermittent asthma Seasonal allergies Pre-eclampsia Trichotillomania Anxiety Surgical History No pertinent past surgical history Family History Father Diabetes Substance use disorder Mental health disorder Mother HTN (hypertension) High cholesterol Elevated blood ketone body level Depression with anxiety Cervical cancer Diabetes Fibromyalgia CVD (cardiovascular disease) Substance use disorder Mental health disorder Maternal Grandmother Liver disease HIV (human immunodeficiency virus infection) Substance use disorder Mental health disorder Maternal Grandfather Murder Maternal Aunt Substance use disorder Mental health disorder Paternal Aunt Substance use disorder Mental health disorder Maternal Grandfather Substance use disorder Mental health disorder Brother Mental health disorder Brother Mental health disorder Brother Mental health disorder Social History Household Members: Spouse Household Members Other:: son Housing: House Alcohol intake: current Alcohol intake frequency: holidays/special occasions only Alcohol type: wine Patient Tobacco Use Status: Never used Tobacco e-Cigarette/Vaping Use: Never Used Substance Use Type: Marijuana service: No Current occupational status: employed 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 Depression Screening Interpretation: Negative Depression Screening Done: Yes Source: Developed by Drs. Richardson L. MelyRadha pate, Pablo Padilla and colleagues, with an educational navneet from [employer]. Thrive Questionnaire Date Thrive assessed: 11/19/23 AUDIT C Alcohol Use Questionnaire (AUDIT-C) 2. How many drinks containing alcohol do you have on a typical day when you are drinking?: 1 or 2 3. How often do you have six or more drinks on one occasion?: Less than monthly Total Score: 1 MILTON-7 AMB Questionnaire MILTON-7 Date MILTON - 7 assessed: 11/19/23 Source: Developed by Drs. Richardson Boone, Radha Rodriguez, Pablo Padilla and colleagues, with an educational navneet from [employer]. Review of Systems Const All systems reviewed & are unremarkable except as noted in HPI and below Physical exam (Primary Care) Vital Signs: Last Vital Signs Pulse 71 06/17/24 13:53 BP 110/80 06/17/24 13:53 Pulse Ox 97 06/17/24 13:53 Oxygen Delivery Method Room Air 06/17/24 13:53 BMI result Body Mass Index 47.0 Tobacco/Smoking Status: Tobacco use Status Tobacco use date assessed 06/17/24 06/17/24 14:06 Patient Tobacco Use Status Never used Tobacco 06/17/24 14:06 e-Cigarette/Vaping Use Never Used 06/17/24 13:54 Depression Screening Interpretation: Negative Thrive Assessment: Date of Thrive Assessment Date Thrive assessed 11/19/23 06/17/24 13:54 Const Other: Alert oriented x3, morbidly obese, no acute cardiorespiratory distress noted, ambulatory with normal gait Orientation/consciousness: patient oriented x3 [facility] General nose exam: Normal external nose present and No nasal discharge present Mouth: Normal oral and palatal mucosa present and moist mucous membranes Eyes General: appearance normal, both eyes and all related structures Conjunctivae: conjunctivae normal EOM: EOMs intact bilaterally Neck Neck: Yes full ROM, Yes no lymphadenopathy, Yes no meningeal signs and Yes supple Resp Auscultation: clear to auscultation bilaterally Cardio Rate: regular rate Rhythm: regular rhythm Heart sounds: S1 normal heart sound present and S2 normal heart sound present GI Other: Normal bowel sounds, soft , no tenderness on palpation on all quadrants of abdomen no mass palpated Inspection: Yes obesity Neuro General: patient oriented x3, gait normal, tone normal, moves all extremities, Normal light touch and pain sensation, no meningeal signs, no focal motor deficits, CN's II-XI intact bilaterally and normal sensation to monofilament Extrem General: Yes full ROM, Yes no joint enlargement, Yes no pedal edema, Yes no calf tenderness and Yes normal gait Coding Level of Care Code Est Pt Level 3 (17289) Diagnoses Headache above the eye region R51.9 Assessment & Plan Assessment & Plan (1) Headache above the eye region: Code(s): R51.9 - Headache, unspecified Category: Medical Plan: Will empirically treat with sumatriptan 100 mg per tablet to take 1 dose at the onset of headache and may take a 2nd dose 2 hours after if headache is still persistent maximum 2 tablets in 24 period. Advised to call if symptoms not improved Medications: New sumatriptan succinate take 1 tab at onset of headache; if no relief, may repeat 1 tab after at least 2 hrs; max = 2 tabs/24 hrs PO 10 tabs 0RF
== END 2024-06-17 15:07 | disposition home or self-care (01) ==
PROVIDERS: PCP Internal Medicine; Visit Provider Internal Medicine
DX: R51.9 Headache, unspecified (principal)

== ENCOUNTER → 2024-06-17 13:20 | Outpatient (BNVA) | payer OTHER, SELFPAY | PROVIDERS: PCP Internal Medicine; Visit Provider Internal Medicine ==

== ENCOUNTER 2024-08-12 09:08 | Outpatient (REF) | payer OTHER, SELFPAY ==
[2024-08-13 11:20] LABS: HPV 16,18/45 See PAP report
== END 2024-08-12 09:09 | disposition home or self-care (01) ==
LOC: HO.LNP 09:08
PROVIDERS: PCP Internal Medicine; Visit Provider Obstetrics & Gynecology
DX: Z01.419 Encounter for gynecological examination (general) (routine) without abnormal findings (principal)
CPT/HCPCS: 87624; 88175

== ENCOUNTER 2024-08-12 09:08 | Outpatient (AMB) | payer OTHER, SELFPAY ==
--- NOTE | 2024-08-12 09:09 | A.OFFVIS_ITS ---
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 No complaints. Last Pap/HPV was negative in 05/22 [facility] Medical History Headache above the eye region History of vitamin D deficiency Morbid obesity Mild intermittent asthma Seasonal allergies Pre-eclampsia Trichotillomania Anxiety Surgical History No pertinent past surgical history Family History Father Diabetes Substance use disorder Mental health disorder Mother HTN (hypertension) High cholesterol Elevated blood ketone body level Depression with anxiety Cervical cancer Diabetes Fibromyalgia CVD (cardiovascular disease) Substance use disorder Mental health disorder Maternal Grandmother Liver disease HIV (human immunodeficiency virus infection) Substance use disorder Mental health disorder Maternal Grandfather Murder Maternal Aunt Substance use disorder Mental health disorder Paternal Aunt Substance use disorder Mental health disorder Maternal Grandfather Substance use disorder Mental health disorder Brother Mental health disorder Brother Mental health disorder Brother Mental health disorder Social History Household Members: Spouse Household Members Other:: son Housing: House Alcohol intake: current Alcohol intake frequency: holidays/special occasions only Alcohol type: wine Patient Tobacco Use Status: Never used Tobacco e-Cigarette/Vaping Use: Never Used Substance Use Type: Marijuana service: No Current occupational status: employed 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 Sexual orientation: Straight/Heterosexual Gender identity: Female Cognitive needs: No Hearing needs: No Vision needs: No Female Reproductive History Menstrual Age of Menarche: 8 Duration of menses: 3-5 days Date of last menstrual period: 07/22/24 Total pregnancies: 1 Full term: 1 Date of last pap smear: 05/06/19 (negative pap smear, negative hpv ) Review of Systems Const All systems reviewed & are unremarkable except as noted in HPI and below Card Reports as per HPI Resp Reports as per HPI GI Reports as per HPI and Reports no additional complaints Reports as per HPI Physical Exam Vital Signs: Last Vital Signs BP 112/78 08/12/24 09:14 BMI result Body Mass Index 45.4 Const General: cooperative, healthy appearing and comfortable Chest Chest palpation & inspection: normal inspection of the chest and normal palpation of entire chest wall Breast/axilla inspection: normal inspection of the breasts and normal inspection of the axillae Breast/axilla palpation: normal palpation of the breasts, normal palpation of the axillae and no axillary lymphadenopathy Resp Effort & Inspection: normal respiratory effort Auscultation: clear to auscultation bilaterally Percussion: percussion normal Cardio Palpation: normal PMI Rate: regular rate Rhythm: regular rhythm Heart sounds: no murmurs and no rubs Peripheral pulses: Peripheral pulses 2+ throughout GI Inspection: Yes normal to inspection Palpation (GI): Soft to palpation, nontender, no guarding, not rigid and No he patosplenomegaly present Percussion: Yes normal to percussion Auscultation: normal bowel sounds Rectal Exam - Female: deferred General: Yes bladder normal to palpation External Female Exam: No lesion Speculum Exam - Vagina: normal appearance of the vagina, normal palpation, normal vaginal discharge and not erythematous Speculum Exam - Cervix: normal appearance of the cervix and normal palpation Bimanual exam- vagina & uterus: normal bimanual exam, normal palpation, uterine size normal, bladder normal to palpation, consistency normal and normal palpation Bimanual Exam- Adnexa, other: normal adnexae, no masses and no tenderness Assessment & Plan Assessment & Plan (1) Well woman exam: Code(s): Z01.419 - Encounter for gynecological examination (general) (routine) without abnormal findings Category: Medical Plan: Cotesting done. Mammogram ordered for 11/25. Counseled the patient about the recommended dietary allowance of 1000 mg of Calcium & 600 IU of vitamin D. The patient was instructed to perform monthly self-breast exams and to schedule an annual exam in a year; All questions answered and the patient verbalized understanding. Instructed the patient to schedule annual exam in a year Orders: Orders MM tomosynthesis screening BI 3 Months Z12.31 - Encounter for screening mammogram for malignant neoplasm of breast Coding Level of Care Code Est Pt Prev Care 18-39y(52812) Diagnoses Well woman exam Z01.419
[2024-08-12 09:14] VITALS: BP 112/78; BMI 45.4
== END 2024-08-12 09:26 | disposition home or self-care (01) ==
PROVIDERS: PCP Internal Medicine; Visit Provider Obstetrics & Gynecology
DX: Z01.419 Encounter for gynecological examination (general) (routine) without abnormal findings (principal)
CPT/HCPCS: 99395

== ENCOUNTER 2024-11-26 12:21 | Outpatient (AMB) | payer OTHER, SELFPAY ==
[2024-11-26 12:32] VITALS: BP 122/80; PULSE 87; RESP 17; TEMP 36.7; O2SAT 97; BMI 47.3
--- NOTE | 2024-11-26 12:32 | A.OFFPC_ITS ---
Vital Signs 11/26/24 12:32 Height 5 ft 7 in Weight 302 lb BMI 47.3 BP 122/80 Blood Pressure Location Lt brachial Position Sitting Respiration 17 Pulse 87 Pulse Source Pulse Oximeter Temp 98.0 F Temp Source Oral Pulse Oximetry (%) 97 Oxygen Delivery Method Room Air Intake Visit Reasons: Physical exam Intake Note: Pt is here today for her PE: Last papsmear 08/13/24 Allergies shellfish derived Allergy (Verified 11/26/24 12:55) Rash prochlorperazine [From Compazine] Adverse Reaction (Intermediate, Verified 11/26/24 12:55) Shakiness Medication List - Last Reconciled 11/26/24 by Helen Cardoza MD albuterol sulfate 90 mcg/actuation (ProAir HFA) 2 puffs inhalation Q6H PRN cholecalciferol (vitamin D3) 50 mcg PO DAILY loratadine (Claritin) 10 mg PO DAILY montelukast 0 mg PO sertraline 100 mg PO DAILY sumatriptan succinate take 1 tab at onset of headache; if no relief, may repeat 1 tab after at least 2 hrs; max = 2 tabs/24 hrs PO trazodone 50 mg PO BEDTIME Tobacco use date assessed: 11/26/24 Dental Screening Dental Screen Date: 11/26/24 Did you have a dental visit in the last 12 months?: Yes Did you have a dental problem in the last 6 months where you did not have access to dental care?: No Was dental information given to patient?: Patient has dentist HPI Physical exam HPI Details 39 year old lady with history of mild in termittent asthma , menstrual migraine, morbid obesity, seasonal allergies, generalized anxiety disorder, with trichotillomania, and history of vitamin-D deficiency, here today for physical exam. She has been feeling well, has been trying to follow a healthy diet, but admits to not getting any regular exercise. She sees Dr. Gill for her routine Pap and pelvic exam, last seen in August of 2024 already has an appointment for her routine Pap and pelvic exam again later this year. An order also has been made for her to have her initial screening mammogram by Dr. Gill scheduled for January this year. She sees psychiatrist online for her generalized anxiety disorder currently stable and controlled on sertraline 100 mg daily, trazodone 50 mg at bedtime She is currently a patient at [facility], where she is being treated for her allergic and seasonal rhinitis, gets immunotherapy, and is on montelukast and takes loratadine as needed for nasal congestion and runny nose. [facility] Medical History Headache above the eye region History of vitamin D deficiency Morbid obesity Mild intermittent asthma Seasonal allergies Pre-eclampsia Trichotillomania Anxiety Surgical History No pertinent past surgical history Family History Father Diabetes Substance use disorder Mental health disorder Mother HTN (hypertension) High cholesterol Elevated blood ketone body level Depression with anxiety Cervical cancer Diabetes Fibromyalgia CVD (cardiovascular disease) Substance use disorder Mental health disorder Maternal Grandmother Liver disease HIV (human immunodeficiency virus infection) Substance use disorder Mental health disorder Maternal Grandfather Murder Maternal Aunt Substance use disorder Mental health disorder Paternal Aunt Substance use disorder Mental health disorder Maternal Grandfather Substance use disorder Mental health disorder Brother Mental health disorder Brother Mental health disorder Brother Mental health disorder Social History Household Members: Spouse Household Members Other:: son Housing: House Alcohol intake: current Alcohol intake frequency: holidays/special occasions only Alcohol type: wine Patient Tobacco Use Status: Never used Tobacco e-Cigarette/Vaping Use: Never Used Substance Use Type: Marijuana service: No Current occupational status: employed 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 1. Little interest or pleasure in doing things: not at all 2. Feeling down, depressed, or hopeless: not at all 3. Trouble falling or staying asleep, or sleeping too much: not at all 4. Feeling tired or having little energy: not at all 5. Poor appetite or overeating: not at all 6. Feeling bad about yourself - or that you are a failure or have let yourself or your family down: not at all 7. Trouble concentrating on things, such as reading the newspaper or watching television: not at all 8. Moving or speaking so slowly that other people could have noticed. Or the opposite - being so fidgety or restless that you have been moving around a lot more than usual: not at all 9. Thoughts that you would be better off or of hurting yourself in some way: not at all Total score: 0 Depression Screening Interpretation: Negative Depression Screening Done: Yes 70741 - PHQ-9 Billing: Yes Source: Developed by Drs. Richardson Boone, Radha Rodriguez, Pablo Padilla and colleagues, with an educational navneet from [employer]. Thrive Questionnaire Date Thrive assessed: 11/26/24 I am a: Patient What is your living situation today?: I have a steady place to live Within the past 12 months, did the food you bought not last and you didn't have the money to get more?: Never true Within the past 12 months, did you worry whether your food would run out before you got money to buy more?: Never true Do you have trouble paying for medicines?: No Do you have trouble getting transportation to medical appointments?: No Do you have trouble paying your heating and electricity bill?: No Do you have trouble taking care of your child, family member or friend?: No Do you have trouble with day-to-day activities such as bathing, preparing meals, shopping, managing finances, etc.?: No Are you currently unemployed and looking for a job?: No Are you interested in more education?: No Please select the resources that you would like help with: None Currently or been in a relationship where the following occur: No concerns reported THRIVE Score: 0 AUDIT C Alcohol Use Questionnaire (AUDIT-C) 1. How often do you have a drink containing alcohol?: Monthly or less 2. How many drinks containing alcohol do you have on a typical day when you are drinking?: 1 or 2 3. How often do you have six or more drinks on one occasion?: Less than monthly Total Score: 2 MILTON-7 AMB Questionnaire MILTON-7 Date MILTON - 7 assessed: 11/26/24 Feeling nervous, anxious, or on edge: 0 = Not at all Not being able to stop or control worryin = Not at all Worrying too much about different things: 0 = Not at all Trouble relaxin = Not at all Being so restless that it is hard to sit still: 0 = Not at all Becoming easily annoyed or irritable: 0 = Not at all Feeling afraid as if something awful might happen: 0 = Not at all Total MILTON-7 score (0-4 normal; 5-9 mild; 10-14 moderate; 15-21 severe): 0 Source: Developed by Drs. Richardson Boone, Radha Rodriguez, Pablo Padilla and colleagues, with an educational navneet from [employer]. MILTON-7 Assessment Billing MILTON-7 Assessment Tool: MILTON-7 Assessment 73661 (Currently followed by psychiatrist online) Review of Systems Const Denies body aches, Denies daytime sleepiness, Denies difficulty sleeping, Denies fatigue, Denies fever(s), Denies stops breathing during sleep and Denies weakness Eyes Reports no additional complaints ENT Reports no additional complaints Card Denies chest pain, Denies rapid heart rate, Denies pedal edema, Denies irregular heart rhythm and Denies dyspnea Resp Denies cough, Denies pain on inspiration and Denies dyspnea GI Denies dyspepsia, Denies heartburn and Denies nausea Denies hematuria, Denies nipple discharge, Denies dysuria, Denies urinary incontinence and Denies vaginal discharge Musc Reports no additional complaints Skin/Breast Denies breast swelling, Denies breast skin changes, Denies breast pain, Denies breast mass, Denies nipple discharge and Denies rash Neuro Reports no additional complaints and Denies weakness Psych Reports no additional complaints Endo Denies fatigue Naif/Lymph Reports no additional complaints Aller/Immun Reports no additional complaints Physical exam (Primary Care) Vital Signs: Last Vital Signs Temp 98.0 F 11/26/24 12:32 Pulse 87 11/26/24 12:32 Resp 17 11/26/24 12:32 BP 122/80 11/26/24 12:32 Pulse Ox 97 11/26/24 12:32 Oxygen Delivery Method Room Air 11/26/24 12:32 BMI result Body Mass Index 47.3 Tobacco/Smoking Status: Tobacco use Status Tobacco use date assessed 11/26/24 11/26/24 12:35 Patient Tobacco Use Status Never used Tobacco 11/26/24 12:35 e-Cigarette/Vaping Use Never Used 11/26/24 12:35 PHQ-9: PHQ-9 Score PHQ-9: Total score 0 11/26/24 12:35 Depression Screening Interpretation: Negative Thrive Assessment: Date of Thrive Assessment Date Thrive assessed 11/26/24 11/26/24 12:35 Currently or been in a relationship where the following occur: No concerns reported Const Other: Alert oriented x3, morbidly obese, no acute cardiorespiratory distress noted, ambulatory with normal gait Orientation/consciousness: patient oriented x3 [facility] General nose exam: Normal external nose present and No nasal discharge present Mouth: Normal oral and palatal mucosa present and moist mucous membranes Eyes General: appearance normal, both eyes and all related structures Conjunctivae: conjunctivae normal EOM: EOMs intact bilaterally Neck Neck: Yes full ROM, Yes no lymphadenopathy, Yes no meningeal signs and Yes supple Chest Breast/axilla inspection: normal inspection of the breasts Breast/axilla palpation: normal palpation of the breasts Resp Auscultation: clear to auscultation bilaterally Cardio Rate: regular rate Rhythm: regular rhythm Heart sounds: S1 normal heart sound present and S2 normal heart sound present GI Other: Normal bowel sounds, soft , no tenderness on palpation on all quadrants of abdomen no mass palpated Inspection: Yes obesity General: Yes no CVA tenderness Back/Spine/Pelvis Back: no CVA tenderness Skin General skin exam: no rashes or lesions noted Neuro General: patient oriented x3, gait normal, tone normal, moves all extremities, Normal light touch and pain sensation, no meningeal signs, no focal motor deficits, CN's II-XI intact bilaterally and normal sensation to monofilament Extrem General: Yes full ROM, Yes no joint enlargement, Yes no pedal edema, Yes no calf tenderness and Yes normal gait Psych Appearance: grossly normal and well kempt Mental Status: mental status grossly normal Speech and movement: Normal speech and movement present Affect: normal affect Attitude: cooperative Coding Level of Care Code Est Pt Prev Care 40-64y(21302) Diagnoses Annual visit for general adult medical examination with abnormal findings Z00.01 Anxiety F41.9 Mild intermittent asthma without complication J45.20 Asthma complication type: uncomplicated Morbid obesity E66.01 History of vitamin D deficiency Z86.39 Encounter for counseling regarding advance directives Z71.89 Additional Codes PHQ-9 - 12093 - PHQ-9 Billing: Yes ([id number]) MILTON-7 Assessment Billing - MILTON-7 Assessment Tool: MILTON-7 Assessment 18305 ([id number]) Assessment & Plan Assessment & Plan (1) Annual visit for general adult medical examination with abnormal findings: Code(s): Z00.01 - Encounter for general adult medical examination with abnormal findings Plan: Will check appropriate labs. Recommended dental visit every 6 months and regular eye exams, at least every 2 years. Take adequate calcium in diet and vitamin-D 3 at 2000 IU per cap once a day, in addition to weight-bearing exercises to help maintain good muscle tone and weight control. Instructed to do self-breast exam, and appointment already scheduled for by her OBGYN for her initial screening mammogram. Up-to-date with her screening for cervical cancer and pelvic exam, sees Dr. Gill, has an appointment already scheduled again for August this year. Has had COVID vaccines in the past but does not want to get the booster, up-to-date with her yearly flu shot, Tdap and pneumococcal vaccination. (2) Anxiety: Comment: ff'd at [facility] Code(s): F41.9 - Anxiety disorder, unspecified Category: Medical Plan: Followed by online psychiatrist, currently stable controlled on sertraline 100 mg daily and trazodone 50 mg at bedtime (3) Mild intermittent asthma: Comment: ff's at [facility] Code(s): J45.20 - Mild intermittent asthma, uncomplicated Category: Medical Qualifiers: Asthma complication type: uncomplicated Qualified Code(s): J45.20 - Mild intermittent asthma, uncomplicated Plan: Uses albuterol inhaler as needed. Rarely needing to use her steroid inhaler (4) Morbid obesity: Code(s): E66.01 - Morbid (severe) obesity due to excess calories Category: Medical Plan: Recommended following a Mediterranean diet is a healthy diet that helps, limit food high in fat, sugar, and calories. Eat slowly, pay attention to portion sizes, plan your meals ahead of time, start regular physical activity, at least 150 minutes of moderate intensity exercise, or 90 minutes per week of vigorous exercise. Keeping a food diary, tracking what you eat and your physical activity can help assess what improvements you can make. There are many health problems associated with being overweight/obese, so it is important to improve your diet and exercise. There are medications and surgical options available, but Lifestyle changes are the 1st step. (5) History of vitamin D deficiency: Code(s): Z86.39 - Personal history of other endocrine, nutritional and metabolic disease Category: Medical Plan: Will check vitamin-D level. Currently taking vitamin D3 2000 units daily (6) Encounter for counseling regarding advance directives: Code(s): Z71.89 - Other specified counseling Plan: Initiated the conversation about Advanced Directives. Advanced Directives help patients prepare for current and future decisions about their medical treatment and place of care. Discussed with patient that it is a process where a patients current condition and prognosis are reviewed, their wishes for information regarding their illness are elicited, and likely medical dilemmas are presented and options discussed. Healthcare proxy form completed today The form can be amended as needed, reviewed yearly and make changes as needed Orders: Orders Lipid Panel Today E66.01 - Morbid (severe) obesity due to excess calories, F41.9 - Anxiety disorder, unspecified, J45.20 - Mild intermittent asthma, uncomplicated, Z00.01 - Encounter for general adult medical examination with abnormal findings, Z71.89 - Other specified counseling, Z86.39 - Personal history of other endocrine, nutritional and metabolic disease Alanine Aminotransferase Today E66.01 - Morbid (severe) obesity due to excess calories, F41.9 - Anxiety disorder, unspecified, J45.20 - Mild intermittent asthma, uncomplicated, Z00.01 - Encounter for general adult medical examination with abnormal findings, Z71.89 - Other specified counseling, Z86.39 - Personal history of other endocrine, nutritional and metabolic disease Vitamin D 25-OH Total Today E66.01 - Morbid (severe) obesity due to excess calories, F41.9 - Anxiety disorder, unspecified, J45.20 - Mild intermittent asthma, uncomplicated, Z00.01 - Encounter for general adult medical examination with abnormal findings, Z71.89 - Other specified counseling, Z86.39 - Personal history of other endocrine, nutritional and metabolic disease Aspartate Amino Transferase Today E66.01 - Morbid (severe) obesity due to excess calories, F41.9 - Anxiety disorder, unspecified, J45.20 - Mild intermittent asthma, uncomplicated, Z00.01 - Encounter for general adult medical examination with abnormal findings, Z71.89 - Other specified counseling, Z86.39 - Personal history of other endocrine, nutritional and metabolic disease Basic Metabolic Panel Fasting Today E66.01 - Morbid (severe) obesity due to excess calories, F41.9 - Anxiety disorder, unspecified, J45.20 - Mild intermittent asthma, uncomplicated, Z00.01 - Encounter for general adult medical examination with abnormal findings, Z71.89 - Other specified counseling, Z86.39 - Personal history of other endocrine, nutritional and metabolic disease
== END 2024-11-26 13:18 | disposition home or self-care (01) ==
LOC: HO.HMCC 12:22
PROVIDERS: PCP Internal Medicine; Visit Provider Internal Medicine
DX: Z00.01 Encounter for general adult medical examination with abnormal findings (principal); F41.9 Anxiety disorder, unspecified; E66.01 Morbid (severe) obesity due to excess calories; Z68.42 Body mass index [BMI] 45.0-49.9, adult; J45.20 Mild intermittent asthma, uncomplicated; Z86.39 Personal history of other endocrine, nutritional and metabolic disease

== ENCOUNTER → 2024-11-26 12:21 | Outpatient (BNVA) | payer OTHER, SELFPAY | PROVIDERS: PCP Internal Medicine; Visit Provider Internal Medicine | DX: Z00.01 Encounter for general adult medical examination with abnormal findings (principal); F41.9 Anxiety disorder, unspecified; J45.20 Mild intermittent asthma, uncomplicated; E66.01 Morbid (severe) obesity due to excess calories; Z68.42 Body mass index [BMI] 45.0-49.9, adult; Z86.39 Personal history of other endocrine, nutritional and metabolic disease; Z79.899 Other long term (current) drug therapy; Z71.89 Other specified counseling | CPT/HCPCS: 96127 ==

== ENCOUNTER 2024-12-30 08:10 | Outpatient (REF) | payer OTHER, SELFPAY ==
[2024-12-30 10:43] LABS: Alanine Aminotransferase 46 U/L (0-31); Anion Gap 14 (12-20); Aspartate Amino Transferase 36 U/L (5-31); Blood Urea Nitrogen 10 mg/dL (9-16); Calcium 8.8 mg/dL (8.4-10.2); Carbon Dioxide 22 mmol/L (22-29); Chloride 106 mmol/L (96-108); Cholesterol 201 mg/dL (<200); Estimated Glomerular Filt Rate > 60; Glucose Fasting 144 mg/dL (60-99); HDL Cholesterol 48 mg/dL (>40); LDL Cholesterol Calculated 130 mg/dL (<100); Potassium 4.3 mmol/L (3.3-5.1); Sodium 138 mmol/L (135-145); Triglycerides 119 mg/dL (<150)
[2024-12-30 11:07] LABS: Vitamin D 25-OH Total 39.6 ng/mL (>30)
== END 2024-12-30 08:11 | disposition home or self-care (01) ==
LOC: HO.HMGCLDS 08:10
PROVIDERS: PCP Internal Medicine; Visit Provider Internal Medicine
DX: Z00.01 Encounter for general adult medical examination with abnormal findings (principal); Z86.39 Personal history of other endocrine, nutritional and metabolic disease; E66.01 Morbid (severe) obesity due to excess calories; J45.20 Mild intermittent asthma, uncomplicated; F41.9 Anxiety disorder, unspecified; Z71.89 Other specified counseling
CPT/HCPCS: 36415; 80048; 80061; 82306; 84450; 84460

== ENCOUNTER 2025-01-08 14:53 | Outpatient (REF) | payer OTHER, SELFPAY | END 2025-01-08 14:54 | disposition home or self-care (01) | LOC: HO.MAMMO 14:53 | PROVIDERS: PCP Internal Medicine; Visit Provider Obstetrics & Gynecology | DX: Z12.31 Encounter for screening mammogram for malignant neoplasm of breast (principal) | CPT/HCPCS: 77063; 77067 ==

== ENCOUNTER → 2025-01-08 15:00 | Outpatient (BNV) | payer OTHER, SELFPAY | PROVIDERS: PCP Internal Medicine; Visit Provider Internal Medicine | DX: Z12.31 Encounter for screening mammogram for malignant neoplasm of breast (principal) | CPT/HCPCS: 77063; 77067 ==

== ENCOUNTER 2025-03-16 13:25 | Outpatient (AMB) | payer OTHER, SELFPAY ==
[2025-03-16 13:36] VITALS: BP 102/74; PULSE 81; RESP 16; TEMP 36.9; O2SAT 100; BMI 47.0
--- NOTE | 2025-03-16 13:36 | MHC.PC.OV ---
Vital Signs 03/16/25 13:36 Height 5 ft 7 in Weight 300 lb BMI 47.0 BP 102/74 Blood Pressure Location Rt brachial Position Sitting Respiration 16 Pulse 81 Pulse Source Pulse Oximeter Temp 98.4 F Temp Source Oral Pulse Oximetry (%) 100 Oxygen Delivery Method Room Air Intake Visit Reasons: f/u ov Intake Note: Pt is here today for her ov f/u wgt Allergies shellfish derived Allergy (Verified 03/16/25 13:53) Rash prochlorperazine (From Compazine) Adverse Reaction (Intermediate, Verified 03/16/25 13:53) Shakiness Medication List - Last Reconciled 03/16/25 by Helen Cardoza MD albuterol sulfate 90 mcg/actuation (ProAir HFA) 2 puffs inhalation Q6H PRN cholecalciferol (vitamin D3) 50 mcg PO DAILY loratadine (Claritin) 10 mg PO DAILY montelukast 0 mg PO sertraline 100 mg PO DAILY sumatriptan succinate take 1 tab at onset of headache; if no relief, may repeat 1 tab after at least 2 hrs; max = 2 tabs/24 hrs PO trazodone 50 mg PO BEDTIME Tobacco use date assessed: 03/16/25 Dental Screening Dental Screen Date: 03/16/25 Did you have a dental visit in the last 12 months?: Yes Did you have a dental problem in the last 6 months where you did not have access to dental care?: No Was dental information given to patient?: Patient has dentist HPI f/u ov HPI Details 39-year-old lady here today complaining of difficulty with weight loss despite not eating much. Patient states that she has been eating a healthier diet, avoiding lot of processed foods, no soda, avoiding junk food but still unable to lose weight. She also has been having intermittent lower abdominal pain, no bloating, has occasional nausea usually in the morning , states that drinking water makes her symptoms worse. Denies any accompanying vomiting, no alteration in bowel habits, no blood in stool. [facility] Medical History (Updated 03/22/25 @ 21:26 by Helen Cardoza MD) Obesity Nausea Heartburn Abdominal discomfort Early satiety Headache above the eye region History of vitamin D deficiency Morbid obesity Mild intermittent asthma Seasonal allergies Pre-eclampsia Trichotillomania Anxiety Surgical History No pertinent past surgical history Family History Father Diabetes Substance use disorder Mental health disorder Mother HTN (hypertension) High cholesterol Elevated blood ketone body level Depression with anxiety Cervical cancer Diabetes Fibromyalgia CVD (cardiovascular disease) Substance use disorder Mental health disorder Maternal Grandmother Liver disease HIV (human immunodeficiency virus infection) Substance use disorder Mental health disorder Maternal Grandfather Murder Maternal Aunt Substance use disorder Mental health disorder Paternal Aunt Substance use disorder Mental health disorder Maternal Grandfather Substance use disorder Mental health disorder Brother Mental health disorder Brother Mental health disorder Brother Mental health disorder Social History Household Members: Spouse Household Members Other:: son Housing: House Alcohol intake: current Alcohol intake frequency: holidays/special occasions only Alcohol type: wine Patient Tobacco Use Status: Never used Tobacco e-Cigarette/Vaping Use: Never Used Substance Use Type: Marijuana service: No Current occupational status: employed Current occupation: [employer] Sexual orientation: Straight/Heterosexual Gender identity: Female Cognitive needs: No Hearing needs: No Vision needs: No Female Reproductive History Menstrual Age of Menarche: 8 Questionnaire PHQ-9 Over the last 2 weeks, how often have you been bothered by any of the following problems? Depression Screening Interpretation: Negative Depression Screening Done: Yes Source: Developed by Drs. Richardson Boone, Radha Rodriguez, Pablo Padilla and colleagues, with an educational navneet from [employer]. Thrive Questionnaire Date Thrive assessed: 11/23/24 I am a: Patient What is your living situation today?: I have a steady place to live Within the past 12 months, did the food you bought not last and you didn't have the money to get more?: Never true Within the past 12 months, did you worry whether your food would run out before you got money to buy more?: Never true Do you have trouble paying for medicines?: No Do you have trouble getting transportation to medical appointments?: No Do you have trouble paying your heating and electricity bill?: No Do you have trouble taking care of your child, family member or friend?: No Do you have trouble with day-to-day activities such as bathing, preparing meals, shopping, managing finances, etc.?: No Are you currently unemployed and looking for a job?: No Are you interested in more education?: No Please select the resources that you would like help with: None Currently or been in a relationship where the following occur: No concerns reported THRIVE Score: 0 MILTON-7 AMB Questionnaire MILTON-7 Date MILTON - 7 assessed: 11/26/24 Source: Developed by Drs. Richardson Boone, Radha Rodriguez, Pablo Padilla and colleagues, with an educational navneet from [employer]. Review of Systems Const All systems reviewed & are unremarkable except as noted in HPI and below ENT Denies dysphagia, Denies dizziness, Denies sore throat and Denies throat swelling Card Reports no additional complaints Resp Reports no additional complaints GI Details: Has early satiety Reports as per HPI and Denies dysphagia Reports no additional complaints Musc Reports no additional complaints Neuro Denies dizziness Endo Reports no additional complaints Aller/Immun Denies throat swelling Physical exam (Primary Care) Vital Signs: Last Vital Signs Temp 98.4 F 03/16/25 13:36 Pulse 81 03/16/25 13:36 Resp 16 03/16/25 13:36 BP 102/74 03/16/25 13:36 Pulse Ox 100 03/16/25 13:36 Oxygen Delivery Method Room Air 03/16/25 13:36 BMI result Body Mass Index 47.0 Tobacco/Smoking Status: Tobacco use Status Tobacco use date assessed 03/16/25 03/16/25 13:41 Patient Tobacco Use Status Never used Tobacco 03/16/25 13:36 e-Cigarette/Vaping Use Never Used 03/16/25 13:36 Depression Screening Interpretation: Negative Thrive Assessment: Date of Thrive Assessment Date Thrive assessed 11/23/24 03/16/25 13:36 Currently or been in a relationship where the following occur: No concerns reported Const Other: Alert oriented x3, morbidly obese, no acute cardiorespiratory distress noted, ambulatory with normal gait [facility] General nose exam: Normal external nose present and No nasal discharge present Mouth: Normal oral and palatal mucosa present and moist mucous membranes Eyes General: appearance normal, both eyes and all related structures Conjunctivae: conjunctivae normal EOM: EOMs intact bilaterally Neck Neck: Yes full ROM, Yes no lymphadenopathy, Yes no meningeal signs and Yes supple Chest Breast/axilla inspection: normal inspection of the breasts Breast/axilla palpation: normal palpation of the breasts Resp Auscultation: clear to auscultation bilaterally Cardio Rate: regular rate Rhythm: regular rhythm Heart sounds: S1 normal heart sound present and S2 normal heart sound present GI Other: Normal bowel sounds, soft , no tenderness on palpation on all quadrants of abdomen no mass palpated Inspection: Yes obesity General: Yes no CVA tenderness Back/Spine/Pelvis Back: no CVA tenderness Skin General skin exam: no rashes or lesions noted Neuro General: gait normal, tone normal, moves all extremities, Normal light touch and pain sensation, no meningeal signs, no focal motor deficits, CN's II-XI intact bilaterally and normal sensation to monofilament Extrem General: Yes full ROM, Yes no joint enlargement, Yes no pedal edema, Yes no calf tenderness and Yes normal gait Psych Appearance: grossly normal and well kempt Mental Status: mental status grossly normal Speech and movement: Normal speech and movement present Affect: normal affect Attitude: cooperative Coding Level of Care Code Est Pt Level 4 (05362) Diagnoses Nausea R11.0 Abdominal discomfort R10.9 Heartburn R12 Obesity E66.9 Obesity classification: adult class 3 (BMI >= 40) Serious obesity comorbidity presence: with serious comorbidity Body mass index: BMI 45.0-49.9 Assessment & Plan Assessment & Plan (1) Nausea: Code(s): R11.0 - Nausea (2) Abdominal discomfort: Code(s): R10.9 - Unspecified abdominal pain Category: Medical (3) Heartburn: Code(s): R12 - Heartburn Category: Medical (4) Obesity: Code(s): E66.9 - Obesity, unspecified Category: Medical Qualifiers: Obesity classification: adult class 3 (BMI >= 40) Serious obesity comorbidity presence: with serious comorbidity Body mass index: BMI 45.0-49.9 Plan Ordered upper GI series, and started empirically on famotidine 40 mg 1 tablet once a day at least 30 minutes before eating. Avoidance of eating a lot of acidic foods and greasy foods. Referral to weight management ordered. To clinic after upper GI series is done Orders: Orders [place] upper GI series 03/16/25 R10.9 - Unspecified abdominal pain, R11.0 - Nausea, R12 - Heartburn, R68.81 - Early satiety Referrals Medical Weight Management Referral E66.9 - Obesity, unspecified Medications: New famotidine 40 mg PO BEDTIME 30 tabs 1RF R10.9 - Unspecified abdominal pain, R11.0 - Nausea, R12 - Heartburn
== END 2025-03-16 15:14 | disposition home or self-care (01) ==
LOC: HO.HMCC 13:25
PROVIDERS: PCP Internal Medicine; Visit Provider Internal Medicine
DX: R11.0 Nausea (principal); E66.9 Obesity, unspecified; Z68.42 Body mass index [BMI] 45.0-49.9, adult; R10.9 Unspecified abdominal pain; R12 Heartburn

== ENCOUNTER 2025-07-01 09:21 | Outpatient (REF) | payer OTHER, SELFPAY ==
--- NOTE | ~2025-07-01 | FL_ITS ---
EXAMINATION: XR FLUOROSCOPY UPPER GI WITH AIR CLINICAL INFORMATION: Nausea COMPARISON: None available. TECHNIQUE: Routine upper GI contrast study was performed in upright view and lying position. FINDINGS: Following oral administration of thick barium and effervescent granules is normal propagation bolus from the oral cavity through the pharynx, esophagus into stomach without any evidence of obstruction, narrowing or stricture. No extrinsic compression or indentation seen. The GE junction is widely patent. On placing patient supine and prone lying the course, caliber and peristalsis of the stomach, duodenal bulb and this CT is normal. The mucosal pattern of stomach and the duodenum is normal. There is no gastroesophageal reflux or hiatal hernia. FLUOROSCOPY TIME: 1 minute 42 seconds DOSE AREA PRODUCT: 26.42 uGy-m2 (microgray-meter squared) FL/FL upper GI w air IMPRESSION: Unremarkable upper GI air contrast examination. Electronically signed by: Cain Ramos MD 07/01/2025 02:58 PM EDT
== END 2025-07-01 09:22 | disposition home or self-care (01) ==
LOC: HO.XRAY 09:21
PROVIDERS: PCP Internal Medicine; Visit Provider Internal Medicine
DX: R10.9 Unspecified abdominal pain (principal); R11.0 Nausea; R68.81 Early satiety
CPT/HCPCS: 74246

== ENCOUNTER → 2025-07-01 09:22 | Outpatient (BNV) | payer OTHER, SELFPAY | PROVIDERS: PCP Internal Medicine; Visit Provider Radiology Diagnostic Radiology | DX: R11.0 Nausea (principal) | CPT/HCPCS: 74246 ==